=== PATIENT | male | born 1975 | race Caucasian/White ===

== ENCOUNTER 2020-03-14 19:01 | Emergency (ER) | payer MEDICAID, SELFPAY ==
[2020-03-14 19:15] VITALS: BP 127/87; PULSE 72; RESP 16; TEMP 37; O2SAT 100
[2020-03-14 19:23] VITALS: BP 127/67; PULSE 72; RESP 16; TEMP 37; O2SAT 100; BMI 23.6
--- NOTE | 2020-03-14 19:28 | ED.DENTAL ---
HPI - Dental/Oral General Chief complaint: Dental/Oral Stated complaint: dental pain Time Seen by Provider: 03/14/20 19:26 Source: patient Mode of arrival: ambulatory Limitations: no limitations History of Present Illness HPI Narrative: Dental pain for the past 3 days call this dentists was given prescription amoxicillin which started 2 days ago and ibuprofen and scheduled for extraction and Filippo feels like the antibiotics is not helping. Teeth map: 1. Extensive decay 2. Extensive decay Mild tender palpation No abscess Onset (ago): day(s) Duration: constant Severity scale (1-10): 5 Relieving factors: nothing Treatment prior to arrival: other (Tylenol) Related Data Previous Rx's Medication Instructions Recorded clindamycin HCl 300 mg PO BID 7 Days #14 cap 03/14/20 Allergies Allergy/AdvReac Type Severity Reaction Status Date / Time No Known Allergies Allergy Unverified 02/17/20 16:27 Review of Systems Review of Systems: Constitutional: No Weight loss, No Fever, No Chills, No Night Sweats, No Fatigue, No Malaise ENT/Mouth: No Hearing loss, No Ear Pain, No Nasal Congestion, No Sinus Pain, No Hoarseness, No sore throat, No Rhinorrhea, No Swallowing Difficulty Eyes: No Eye Pain, No Swelling, No Redness, No Foreign Body, No Discharge, No Vision Changes Cardiovascular: No Chest Pain, No SOB, No Dyspnea on Exertion, No Orthopnea, No Edema, No Palpitations Respiratory: No Cough, No Sputum, No Wheezing, No Smoke Exposure, No Dyspnea Gastrointestinal: No Nausea, No Vomiting, No Diarrhea, No Constipation, No abdominal Pain, No Hematochezia, No Melena Musculoskeletal: No joint pain, No Myalgias, No Joint Swelling Skin: No Skin Lesions, No rash Neuro: No Weakness, No Numbness, No Paresthesias, No Loss of Consciousness, No Dizziness, No Headache Psych: No Anxiety/Panic, No Depression, No SI/HI/AH/VH, No Social Issues, Heme/Lymph: No Bruising, No Bleeding,No Lymphadenopathy PMFSH Past Medical History Attestation statement: The following information was validated with the patient. Social History Social History Alcohol intake: never Smoking Status: Current every day smoker Use of substances other than those prescribed or required for medical reasons: No Advance Directives: No Advance Directives Information Provided: Yes Physical Exam Vital Signs: Vital Signs: Vital Signs Temp Pulse Resp BP Pulse Ox 03/14/20 19:23 98.6 F 72 16 127/67 100 03/14/20 19:15 98.6 F 72 16 127/87 100 Body Mass Index 23.6 Const: General: cooperative and healthy appearing; No acute distress or intoxicated appearing Nutritional Appearance: average body habitus Orientation/consciousness: patient oriented x3 HENMT: Head: Yes normal to inspection Ears: hearing grossly normal bilaterally Teeth and gingiva: caries Eyes: General: appearance normal, both eyes and all related structures Visual Carcamo: normal visual carcamo by confrontation Chest: Chest palpation & inspection: normal inspection of the chest Resp: Effort & Inspection: normal respiratory effort Cardio: Jugular venous distension: no JVD Skin: General skin exam: no rashes or lesions noted Neuro: General: patient oriented x3 Extrem: General: Yes normal to inspection Course Course Course Narrative: Mass PET reviewed On methadone would prefer to avoid narcotics Okay with ibuprofen and topical Orajel and change antibiotics to clindamycin. He is agreeable plan. Stable for discharge. Discharge Plan Discharge Clinical Impression: Dental caries Patient Disposition: Home, Self-Care Instructions: Toothache (ED) Additional Instructions: Stop taking amoxicillin Start taking the new antibiotic (clindamycin) Topical pain medication (Orajel) Ibuprofen for pain Called the dentist to schedule appointment sooner for evaluation and treatment Return if any concerns or worsening symptoms Thank you Prescriptions: New clindamycin HCl 300 mg capsule 300 mg PO BID 7 Days Qty: 14 RF: 0
== END 2020-03-14 19:54 | disposition home or self-care (01) ==
PROVIDERS: Emergency Provider Internal Medicine; PCP Internal Medicine
DX: K02.9 Dental caries, unspecified (principal); K08.89 Other specified disorders of teeth and supporting structures; F17.200 Nicotine dependence, unspecified, uncomplicated
CPT/HCPCS: 99283; 99284

== ENCOUNTER 2020-11-05 21:51 | Emergency (ER) | payer MEDICAID, SELFPAY ==
[2020-11-05 21:54] VITALS: BP 107/76; PULSE 72; RESP 16; O2SAT 95; BMI 23.8
--- NOTE | 2020-11-06 00:44 | ED.DENTAL ---
HPI - Dental/Oral General Chief complaint: Dental/Oral Stated complaint: Dental Pain Time Seen by Provider: 11/06/20 00:15 Source: patient Mode of arrival: ambulatory History of Present Illness HPI Narrative: This is a 45-year-old male who presents with worsening dental pain at 4. Without associated fever, chills. Related Data Previous Rx's Medication Instructions Recorded clindamycin HCl 300 mg PO BID 7 Days #14 cap 03/14/20 ibuprofen [IBU] 800 mg PO Q8H #30 tab 03/14/20 amoxicillin-pot clavulanate 1 tab PO Q12H 5 Days #10 tab 11/06/20 [Augmentin] Allergies Allergy/AdvReac Type Severity Reaction Status Date / Time No Known Allergies Allergy Verified 11/05/20 21:57 Review of Systems Review of Systems: Pertinent positives and negatives as stated in HPI 10 point review of systems is otherwise negative. PMFSH Past Medical History Source: nursing notes reviewed Medical History No known health problems Social History Social History Alcohol intake: never Advance Directives: No Advance Directives Information Provided: Yes Physical Exam Vital Signs: Vital Signs: Last Vital Signs Pulse 72 11/05/20 21:54 Resp 16 11/05/20 21:54 BP 107/76 11/05/20 21:54 Pulse Ox 95 11/05/20 21:54 Body Mass Index 23.8 VITAL SIGNS: Reviewed. GENERAL: Well developed, well nourished, in no acute distress. HEAD: Normocephalic/atraumatic EYES: PERRLA, EOMI NOSE: Nares patent bilateral OROPHARYNX: no oral lesions noted, posterior pharynx clear, multiple dental caries, noted gum a rosea in around the affected/painful tooth without obvious evidence of abscess NECK: Supple, no adenopathy LUNGS: Normal breath sounds. No adventitious sounds or accessory muscle use. SpO2<95> CARDIOVASCULAR: Regular rate and rhythm without noted murmurs ABDOMEN: Soft, non-tender, non-distended with bowel sounds. Course Course Course Narrative: This is a 45-year-old male with history and clinical presentation consistent with dental caries and toothache. Patient was provided with combination analgesics and initial antibiotics here in the emergency room as well as topical benzocaine for symptomatic relief. He was then discharged in stable condition. Discharge Plan Discharge Clinical Impression: Toothache, Dental caries Patient Disposition: Home, Self-Care Instructions: Toothache (ED) Additional Instructions: Follow-up with a dentist tomorrow morning for re-evaluation. Tylenol 1000 mg, orally, every 6 hours as needed for pain control. Do not exceed 4000 mg within 24 hours. Ibuprofen 400 mg, orally with milk or food, every 6 hours as needed for pain control. You may take this medication together with Tylenol for improved symptom relief. Return to the ER for acute worsening of symptoms. Prescriptions: New amoxicillin-pot clavulanate [Augmentin] 875-125 mg tablet 1 tab PO Q12H 5 Days Qty: 10 RF: 0 No Action clindamycin HCl 300 mg capsule 300 mg PO BID 7 Days Qty: 14 RF: 0 ibuprofen [IBU] 800 mg tablet 800 mg PO Q8H Qty: 30 RF: 0 Referrals: Lonnie Botello MD [Primary Care Provider] - 2 days
[2020-11-06] MEDS: Acetaminophen 325 MG TABLET 975 MG PO (00:53)
[2020-11-06] MEDS: Ketorolac Tromethamine 15 MG/ML VIAL IM (00:53)
[2020-11-06] MEDS: Amoxicillin/Potassium Clav 875 MG TABLET PO (00:53)
== END 2020-11-06 00:57 | disposition home or self-care (01) ==
PROVIDERS: Emergency Provider Student in an Organized Health Care Education/Training Program; PCP Internal Medicine
DX: K02.9 Dental caries, unspecified (principal); K08.89 Other specified disorders of teeth and supporting structures
CPT/HCPCS: 96372; 99283; 99284; J1885

== ENCOUNTER 2020-11-20 11:33 | Outpatient (REF) | payer MEDICAID, SELFPAY ==
--- NOTE | ~2020-11-20 | XR_ITS ---
EXAMINATION: XR LUMBOSACRAL SPINE CLINICAL INFORMATION: Low back pain COMPARISON: Lumbar spine radiograph from 01/11/2010 TECHNIQUE: Three views of the lumbosacral spine. FINDINGS: There are 5 nonrib-bearing lumbar-type vertebral bodies. No acute visible fracture or dislocation. Slight dextrocurvature of the mid lumbar spine. Minimal degenerative changes with osteophyte formation lumbar spine arthropathy. Vertebral body height and disc spaces are otherwise maintained. Posterior elements are intact. Paraspinal soft tissues are unremarkable. Visualized bowel gas is unremarkable. XR/XR lumbar spine 2-3V IMPRESSION: 1. No acute visible fracture or dislocation. 2. Minimal degenerative changes.
== END 2020-11-20 11:34 | disposition home or self-care (01) ==
LOC: HO.XRAY 11:33
PROVIDERS: PCP Internal Medicine; Visit Provider Internal Medicine
DX: M54.5 Low back pain (principal)
CPT/HCPCS: 72100

== ENCOUNTER 2022-02-06 09:00 | Outpatient (RCR) | payer MEDICAID, SELFPAY ==
[2022-01-18 09:13] VITALS: BP 119/71; PULSE 82; O2SAT 96
== END 2022-02-20 11:37 | disposition home or self-care (01) ==
LOC: HO.PT 09:00
PROVIDERS: PCP Internal Medicine; Visit Provider Family Medicine
DX: M54.50 Low back pain, unspecified (principal)
CPT/HCPCS: 97110; 97161; 97530

== ENCOUNTER 2023-01-07 08:40 | Outpatient (REF) | payer MEDICAID, SELFPAY ==
[2023-01-07 11:27] LABS: MANUAL DIFF FLAG NO
[2023-01-07 11:49] LABS: Basophils Absolute Auto 0.1 X10*3/uL (0.0-0.2); Basophils Percent Auto 0.9 % (0-2); Eosinophils Absolute Auto 0.1 X10*3/uL (0.0-0.4); Eosinophils Percent Auto 1.6 % (0-4); Hematocrit 42.5 % (42.0-52.0); Hemoglobin 14.2 g/dl (14.0-18.0); Imm Gran Abs Auto 0.02 X10*3/uL (0.00-0.03); Imm Gran Pct Auto 0.4 % (0.0-0.4); Lymphocytes Absolute Auto 2.1 X10*3/uL (1.2-4.9); Lymphocytes Percent Auto 36.9 % (20-40); Mean Corpuscular HGB Conc 33.4 g/dl (31.0-36.0); Mean Corpuscular Hemoglobin 29.3 pg (27.0-33.0); Mean Corpuscular Volume 87.8 fL (80.0-98.0); Mean Platelet Volume 10.2 fL (9.4-12.4); Monocytes Absolute Auto 1.1 X10*3/uL (0.1-1.2); Monocytes Percent Auto 18.7 % (2-11); Neutrophils Absolute Auto 2.3 x10*3/uL (2.0-8.3); Neutrophils Percent Auto 41.5 % (45-73); Platelet Count 265 X10*3/uL (160-400); Red Blood Count 4.84 X10*6/uL (4.60-5.80); Red Cell Distribution Width 13.9 % (11.0-16.0); White Blood Count 5.6 X10*3/uL (4.8-10.8)
[2023-01-07 12:31] LABS: Anion Gap 12 (12-20); Blood Urea Nitrogen 16 mg/dL (9-16); Calcium 9.6 mg/dL (8.4-10.2); Carbon Dioxide 28 mmol/L (22-29); Chloride 104 mmol/L (96-108); Estimated Glomerular Filt Rate > 60; Glucose Random 100 mg/dL (60-115); Sodium 140 mmol/L (135-145)
== END 2023-01-07 08:41 | disposition home or self-care (01) ==
LOC: HO.HHCL 08:40
PROVIDERS: Visit Provider Student in an Organized Health Care Education/Training Program
DX: E78.1 Pure hyperglyceridemia (principal)
CPT/HCPCS: 36415; 80048; 85025

== ENCOUNTER 2024-09-18 06:59 | Emergency (ER) | payer BC, SELFPAY ==
--- NOTE | ~2024-09-18 | XR_ITS ---
CLINICAL HISTORY: cough dyspnea 2 view chest x-ray Comparison: None Findings: The lungs are clear. Normal size heart. No acute fracture. IMPRESSION: No acute cardiopulmonary abnormality. This document has been electronically signed by: Trent Desouza on 09/18/2024 07:53:38
[2024-09-18 07:00] VITALS: BP 132/93; PULSE 98; RESP 20; TEMP 36; O2SAT 94; BMI 25.8
--- NOTE | 2024-09-18 07:03 | ECG_ITS ---
Test Reason : SOB Blood Pressure : */* mmHG Vent. Rate : 73 BPM Atrial Rate : 73 BPM P-R Int : 150 ms QRS Dur : 78 ms QT Int : 396 ms P-R-T Axes : 71 22 35 degrees QTcB Int : 436 ms Normal sinus rhythm Normal ECG When compared with ECG of 29-Jul-2016 09:09, No significant change was found Referred By: Generic ED Physician Electronically Signed By: CAMRYN AKHTAR MD
--- NOTE | 2024-09-18 07:06 | PC.NURSE ---
Pt also reporting sore throat
[2024-09-18 07:17] LABS: MANUAL DIFF FLAG NO
[2024-09-18 07:20] LABS: Basophils Absolute Auto 0.1 X10*3/uL (0.0-0.2); Eosinophils Absolute Auto 0.6 X10*3/uL (0.0-0.4); Eosinophils Percent Auto 5.9 % (0-4); Hemoglobin 13.8 g/dl (14.0-18.0); Imm Gran Abs Auto 0.04 X10*3/uL (0.00-0.03); Imm Gran Pct Auto 0.4 % (0.0-0.4); Lymphocytes Absolute Auto 2.8 X10*3/uL (1.2-4.9); Lymphocytes Percent Auto 27.5 % (20-40); Mean Corpuscular HGB Conc 34.5 g/dl (31.0-36.0); Mean Corpuscular Hemoglobin 30.1 pg (27.0-33.0); Mean Corpuscular Volume 87.1 fL (80.0-98.0); Monocytes Absolute Auto 1.2 X10*3/uL (0.1-1.2); Monocytes Percent Auto 11.3 % (2-11); Neutrophils Absolute Auto 5.5 x10*3/uL (2.0-8.3); Neutrophils Percent Auto 53.9 % (45-73); Platelet Count 280 X10*3/uL (160-400); Red Blood Count 4.59 X10*6/uL (4.60-5.80); Red Cell Distribution Width 13.4 % (11.0-16.0); White Blood Count 10.1 X10*3/uL (4.8-10.8)
--- NOTE | 2024-09-18 07:30 | ED.SOB ---
HPI - SOB/Dyspnea General Chief Complaint: Dyspnea Stated Complaint: Diff breathing Time Seen by Provider: 09/18/24 07:26 Source: patient Mode of arrival: ambulatory Limitations: no limitations History of Present Illness HPI Narrative: This is a 49 years old patient presented to the emergency department with a chief complaint of cough congestion shortness of breath. He denies any fever chills vomiting. He does smoke. He is ambulatory to the emergency department MD elicited complaint: shortness of breath and cough Onset (ago): day(s) (2) Timing: constant Severity: moderate Exacerbating factors: nothing Relieving factors: nothing Associated symptoms: denies other symptoms Related Data Home oxygen amount: none Previous Rx's ?Medication ?Instructions ?Recorded clindamycin HCl 300 mg capsule 300 mg PO BID 7 days #14 caps 03/14/20 ibuprofen 800 mg tablet (IBU) 800 mg PO Q8H Pain #30 tabs 03/14/20 amoxicillin 875 mg-potassium 1 tab PO Q12H 5 days #10 tabs 11/06/20 clavulanate 125 mg tablet (Augmentin) albuterol sulfate 90 mcg/actuation 2 inh inhalation Q6H PRN shortness 09/18/24 breath activated powder inhaler of breath or wheezing #1 ea doxycycline monohydrate 100 mg 100 mg PO BID #14 caps 09/18/24 capsule prednisone 20 mg tablet 60 mg (3 x 20 mg) PO DAILY #12 tabs 09/18/24 Allergies Allergy/AdvReac Type Severity Reaction Status Date / Time No Known Allergies Allergy Verified 09/18/24 07:02 Review of Systems Constitutional: Constitutional: Reports no additional constitutional complaints Cardiovascular: Cardiovascular: Reports no additional cardiovascular complaints Respiratory: Respiratory: Reports cough [facility] Past Medical History Attestation statement: The following information was validated with the patient. [facility] Narrative: smoker Medical History No known health problems Social History Social History Alcohol intake: never Smoked in Last 30 Days: Yes Advance Directives: No Advance Directives Information Provided: No Physical Exam Vital Signs: Vital Signs: Last Vital Signs Temp 96.8 F 09/18/24 07:00 Pulse 80 09/18/24 07:51 Resp 18 09/18/24 07:51 BP 132/93 H 09/18/24 07:00 Pulse Ox 94 09/18/24 07:00 O2 Del Method Room Air 09/18/24 07:00 BMI result Body Mass Index 25.8 Patient is in no distress she is comfortable in the stretcher Const: General: cooperative Orientation/consciousness: patient oriented x3 HEENT: Head: Yes normal to inspection General nose exam: Normal external nose present Face and sinus: Yes normal facial exam Mouth: Normal oral and palatal mucosa present Teeth and gingiva: dentition normal Throat: Yes posterior oropharynx normal Neck: Neck: Yes normal visual inspection Chest: Chest palpation & inspection: normal inspection of the chest Resp: Effort & Inspection: Actively coughing Auscultation: rhonchi and wheezes Cardio: Jugular venous distension: no JVD Rate: regular rate Rhythm: regular rhythm GI: Inspection: Yes normal to inspection Auscultation: normal bowel sounds Skin: General skin exam: no rashes or lesions noted Lesions: no lesions Rashes: no rashes Neuro: General: patient oriented x3 Course Reevaluation(s) Reevaluation #1: On re-examination he is feeling much better after nebulizer treatment anticipate discharge Time: 08:15 Medications Administered Discontinued Medications Generic Name Dose Route Start Last Admin Trade Name Freq PRN Reason Stop Dose Admin Albuterol Sulfate 2.5 mg/ 5 mg 09/18/24 07:40 09/18/24 07:49 Albuterol Sulfate 2.5 mg INHALE 09/18/24 07:41 5 mg ONCE ONE Administration Medical Decision Making Medical Decision Making [facility] Narrative: Patient is here with cough congestion we will obtain chest x-ray labs 08:50 the patient is doing much better lungs clear, cranial picture more consistent with asthmatic bronchitis we will discharge him home on a albuterol/prednisone/p.o. antibiotic Differential Diagnosis Differential Diagnoses: The differential diagnosis associated with the presentation includes Bronchitis/pneumonia/viral syndrome Admission/Observation Consideration of admission/observation: Escalation of care including admission/observation considered Lab Data [facility] Lab Attestation statement: I reviewed the patient's lab results. 09/18/24 07:12 09/18/24 07:12 Labs: Lab Results 09/18/24 Range/Units 07:12 WBC 10.1 (4.8-10.8) X10*3/uL RBC 4.59 L (4.60-5.80) X10*6/uL Hgb 13.8 L (14.0-18.0) g/dl Hct 40.0 L (42.0-52.0) % MCV 87.1 (80.0-98.0) fL MCH 30.1 (27.0-33.0) pg MCHC 34.5 (31.0-36.0) g/dl RDW 13.4 (11.0-16.0) % Plt Count 280 (160-400) X10*3/uL MPV 9.0 L (9.4-12.4) fL Immature Gran % (Auto) 0.4 (0.0-0.4) % Neut % (Auto) 53.9 (45-73) % Lymph % (Auto) 27.5 (20-40) % [place] % (Auto) 11.3 H (2-11) % Eos % (Auto) 5.9 H (0-4) % Baso % (Auto) 1.0 (0-2) % Lymph # (Auto) 2.8 (1.2-4.9) X10*3/uL [place] # (Auto) 1.2 (0.1-1.2) X10*3/uL Eos # (Auto) 0.6 H (0.0-0.4) X10*3/uL Baso # (Auto) 0.1 (0.0-0.2) X10*3/uL Abs Immat Gran (auto) 0.04 H (0.00-0.03) X10*3/uL Absolute Neuts (auto) 5.5 (2.0-8.3) x10*3/uL Absolute Nucleated RBC 0.000 (0.0-0.012) X10*3/uL Nucleated RBC % (auto) 0.0 (0.0-0.2) /100WBC Sodium 139 (135-145) mmol/L Potassium 4.3 (3.3-5.1) mmol/L Chloride 105 (96-108) mmol/L Carbon Dioxide 27 (22-29) mmol/L Anion Gap 11 L (12-20) BUN 15 (9-16) mg/dL Creatinine 0.72 (0.5-1.4) mg/dL Estim Creat Clear Calc 116.0 Estimated GFR > 60 Random Glucose 99 (60-115) mg/dL Calcium 9.7 (8.4-10.2) mg/dL Troponin I High Sens < 2.7 (<3.5-35.0) ng/L B-Natriuretic Peptide < 10 (<100) pg/mL Influenza Type A (PCR) NEGATIVE (Negative) Influenza Type B (PCR) NEGATIVE (Negative) RSV RNA Qual (PCR) NEGATIVE (Negative) SARS-CoV-2 RNA (RT-PCR) NEGATIVE (Negative) S. pyogenes GrpA ZURDO Negative (Negative) Independent Interpretation I performed an independent interpretation of an: EKG and Plain X-Ray Interpretation: EKG that you interpreted by me as sinus rhythm rate [address]-T changes this is a normal EKG Radiology Impression Discussion of test interpretation with radiology: I have reviewed the radiologist's reading. Discharge Plan Discharge Clinical Impression: Bronchitis Patient Disposition: Home, Self-Care Instructions: Acute Bronchitis (ED) Prescriptions: New albuterol sulfate 90 mcg/actuation aerosol powdr breath activated 2 inh inhalation Q6H PRN (Reason: shortness of breath or wheezing) Qty: 1 0RF prednisone 20 mg tablet 60 mg PO DAILY Qty: 12 0RF doxycycline monohydrate 100 mg capsule 100 mg PO BID Qty: 14 0RF No Action amoxicillin-pot clavulanate [Augmentin] 875-125 mg tablet 1 tab PO Q12H 5 Days Qty: 10 0RF clindamycin HCl 300 mg capsule 300 mg PO BID 7 Days Qty: 14 0RF ibuprofen [IBU] 800 mg tablet 800 mg PO Q8H Qty: 30 0RF Referrals: Lonnie Botello MD [Primary Care Provider] - 2 days Print Language: Cook Islander
[2024-09-18 07:33] LABS: IDNOW Serial# 6674DD1D; Strep A Nucleic Acid Negative (Negative)
[2024-09-18 07:36] LABS: Anion Gap 11 (12-20); Blood Urea Nitrogen 15 mg/dL (9-16); Calcium 9.7 mg/dL (8.4-10.2); Carbon Dioxide 27 mmol/L (22-29); Chloride 105 mmol/L (96-108); Estimated Glomerular Filt Rate > 60; Glucose Random 99 mg/dL (60-115); Potassium 4.3 mmol/L (3.3-5.1); Sodium 139 mmol/L (135-145)
[2024-09-18 07:42] LABS: Troponin-I High Sensitivity < 2.7 ng/L (<3.5-35.0)
[2024-09-18 07:46] LABS: B Type Natriuretic Peptide < 10 pg/mL (<100)
[2024-09-18] MEDS: Albuterol Sulfate 2.5 MG, Albuterol Sulfate (0.083%) 2.5 MG 5 MG INHALE (07:49)
[2024-09-18 07:51] VITALS: PULSE 80; RESP 18; O2SAT 94
[2024-09-18 07:57] LABS: Influenza A PCR NEGATIVE (Negative); Influenza B PCR NEGATIVE (Negative); Resp Syncy Virus RNA Qual PCR NEGATIVE (Negative); SARS COV2 PCR INHOUSE NEGATIVE (Negative)
[2024-09-18 08:26] VITALS: BP 109/77; PULSE 70; RESP 16; TEMP 36.6; O2SAT 94
== END 2024-09-18 08:27 | disposition home or self-care (01) ==
PROVIDERS: Emergency Provider Emergency Medicine; PCP Internal Medicine
DX: J40 Bronchitis, not specified as acute or chronic (principal); R06.02 Shortness of breath; R05.9 Cough, unspecified; Z03.818 Encounter for observation for suspected exposure to other biological agents ruled out
CPT/HCPCS: 0241U; 71046; 80048; 83880; 84484; 85025; 87651; 93005; 94640; 99284

== ENCOUNTER → 2024-09-18 07:03 | Outpatient (BNV) | payer BC, SELFPAY | PROVIDERS: Emergency Provider Emergency Medicine; PCP Internal Medicine; Visit Provider Internal Medicine Cardiovascular Disease | DX: R06.02 Shortness of breath (principal) | CPT/HCPCS: 93010 ==

== ENCOUNTER → 2024-09-18 07:03 | Outpatient (BNV) | payer BC, SELFPAY | PROVIDERS: Emergency Provider Emergency Medicine; PCP Internal Medicine; Visit Provider Radiology Vascular & Interventional Radiology | DX: R05.9 Cough, unspecified (principal); R06.00 Dyspnea, unspecified | CPT/HCPCS: 71046 ==

== ENCOUNTER 2025-01-10 11:29 | Emergency (ER) | payer BC, SELFPAY ==
--- NOTE | ~2025-01-10 | CT_ITS ---
EXAMINATION: CT FACIAL BONES WITHOUT CONTRAST CLINICAL INFORMATION: Status post fall. COMPARISON: None available. TECHNIQUE: 1 diffuse axial images through the maxillofacial bones using 3 mm collimation with bone and soft tissue algorithm. Sagittal and coronal reformatted images acquired. DLP: 316.[address] examination was performed using dose optimization techniques as appropriate, variously including the following: *Automated exposure control *Adjustment of mA and/or kV according to patient size (this includes techniques or standardized protocols for targeted exams where dose is matched to indication/reason for exam; i.e. extremities or head) *Use of iterative reconstruction technique FINDINGS: There is a focal defect in the nasal septum probably drug-related. Old traumatic deformity nasal bones. No acute cortical disruption within the nasal bones nasal septum and vomer. The orbital rims, orbital fissures and orbital apices are intact. Zygomatic arcs are intact. The maxilla and and pterygoid plates are intact. The mandible is intact. Edentulous. No hematoma, intraconal or extraconal compartments of the orbits. The eyeballs are intact. Tympanic cavities and mastoid cells are aerated. Mucosal thickening, maxillary sinuses and ethmoid air cells. No gross air-fluid levels in the paranasal sinus. Punctate calcifications in the palatine tonsils. Nonspecific prominent cervical lymph nodes. Focal lobulated the gas abnormalities in the paraglottic compartment bilaterally. I do not see the thyroid. 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 No acute maxillofacial bone fractures. Chronic paranasal sinus disease. Focal defect anterior nasal septum likely drop-related. Electronically signed by: Donaldo Andrea MD 01/10/2025 01:55 PM EDT
--- NOTE | ~2025-01-10 | CT_ITS ---
EXAMINATION: CT HEAD WITHOUT CONTRAST CLINICAL INFORMATION: fall with head strike, dizziness COMPARISON: February 21, 2019. TECHNIQUE: Contiguous axial imaging was performed from the skull base to vertex without intravenous administration of contrast. This CT examination was performed using dose optimization techniques as appropriate, variously including the following: *Automated exposure control *Adjustment of mA and/or kV according to patient size (this includes techniques or standardized protocols for targeted exams where dose is matched to indication/reason for exam; i.e. extremities or head) *Use of iterative reconstruction technique DLP: 640.9 mGy-cm FINDINGS: No acute cortical disruption, bony calvarium. Probable old traumatic deformity nasal bones. No acute intracranial hemorrhage, mass effect, midline shift, hydrocephalus or herniation. Meyers-white matter differentiation is normal. Posterior cranial fossa contents demonstrated no acute intracranial hemorrhage or gross mass effect. Sellar/suprasellar region demonstrated no gross masses. Normal position of the cerebellar tonsils. Xanthogranulomatous choroid plexus bilaterally. No air-fluid levels in the paranasal sinuses. Mucosal thickening, maxillary sinuses and ethmoid air cells. Tympanic cavities and mastoid cells are aerated. No gross hematoma in the intraconal or extraconal compartments of the orbits. CT/CT head/brain wo IV con IMPRESSION: No acute fracture, bony calvarium. No acute intracranial hemorrhage. Stable brain. Electronically signed by: Donaldo Andrea MD 01/10/2025 01:50 PM EDT
[2025-01-10 12:42] VITALS: BP 115/75; PULSE 75; RESP 18; TEMP 36.6; O2SAT 98; BMI 27.5
--- NOTE | 2025-01-10 12:42 | ED_ITS ---
HPI - General Adult General Chief complaint: Head Injury Stated complaint: Fall Sat, head injury, DR sent Time Seen by Provider: 01/10/25 16:45 Source: patient Mode of arrival: ambulatory Limitations: no limitations History of Present Illness ED Provider: Matthieu Earl PA-C HPI narrative: 49-year-old male presents to the ER for evaluation of dizziness after a fall 2 days ago. He states he fell and hit his head on concrete floor with carpet overlying, sustaining rug herrera to his left maxillary area and forehead. No loss of consciousness. He is not on anticoagulation. He states after he fell he had a mild hedache but no other symptoms. He woke up yesterday with dizziness and feeling the room spin when he stood up and moved around. Improved with rest and sitting. no associated N/V, vision changes, weakness, numbness or tingling. no neck pain. no chest pain or sob. he states his dizziness is better today but still happens slightly when he stands up, less intense than yesterday. complaint: dizziness Onset (ago): day(s) (1) Location: head Pain Consistency: intermittent Relieving factors: rest Exacerbating factors: other (standing up) Associated symptoms: other (dizziness) Treatments prior to arrival: none Related Data Previous Rx's ?Medication ?Instructions ?Recorded clindamycin HCl 300 mg capsule 300 mg PO BID 7 days #1 4 caps 03/14/20 ibuprofen 800 mg tablet (IBU) 800 mg PO Q8H Pain #30 t abs 03/14/20 amoxicillin 875 mg-potassium 1 tab PO Q12H 5 days #10 tabs 11/06/20 clavulanate 125 mg tablet (Augmentin) albuterol sulfate 90 mcg/actuation 2 inh inhalation Q6 H PRN shortness 09/18/24 breath activated powder inhaler of breath or wheezing #1 ea doxycycline monohydrate 100 mg 100 mg PO BID #14 caps 09/18/24 capsule prednisone 20 mg tablet 60 mg (3 x 20 mg) PO DAILY # 12 tabs 09/18/24 Allergies Allergy/AdvReac Type Severity Reaction Status Date / Time No Known Allergies Allergy Verified 01/10/25 12:44 Review of Systems 2 Review of Systems: Yes all other systems are reviewed and are negative PMFSH Past Medical History Medical History No known health problems Social History Social History Alcohol intake: never Advance Directives: No Advance Directives Information Provided: Yes Physical Exam ED Exam Exam: Appearance: Alert. Oriented X3. No acute distress. Head/face: normocephalic, superficial, healing abrasions/herrera on the left superior orbit and left forehead Eyes: Pupils equal, round and reactive to light. No nystagmus ENT: Pharynx normal. Neck: Normal inspection. Neck supple. No c-spine tenderness CVS: Normal heart rate and rhythm. Pulses normal. Respiratory: No respiratory distress. Breath sounds normal. Skin: Skin warm and dry. Normal skin color. Normal skin turgor. No rashes. Extremities: No lower extremity edema. No joint swelling. Neuro/psych: Oriented X 3. No motor deficit. No sensory deficit. CN II-XII intact. Normal speech and cognition. Steady gait Vital Signs: Vital Signs - 24 hr 01/10/25 12:42 Temperature 97.8 F Pulse Rate 75 Respiratory Rate 18 Blood Pressure 115/75 Pulse Oximetry 98 Oxygen Delivery Method Room Air BMI result Body Mass Index 27.5 Course Course Course Narrative: This is a rapid medical exam performed by Alfredito Moore NP: Additional HPI, ROS, PE not included below will be deferred to primary provider. Patient is a 49-year-old male with history of [place] Palsy affecting L side of face complaining of dizziness since a fall on Friday. Was working out, slipped and hit face on a carpeted floor. Woke yesterday with room spinning. Denies headache or vision changes. Has abrasion to bridge of nose. Plan: CT head and facial bones, EKG, labs Medical Decision Making Medical Decision Making MDM Narrative: 49 yo male presenting for evaluation of postural dizziness s/p fall with face strike 2 days ago. no LOC and not on anticoagulation. symptoms overall improving. tried to go to work today but came here because he was dizzy. no chest pain, sob, diaphroesis, focal neuro symptoms. VS are normal steady gait with no focal findings on exam. labs reviewed. CT reviewed - no acute traumatic findings, old fractures seen. overall he is feeling better. comfortable with discharge home. discussed head injury management and return precautions Differential Diagnosis Differential Diagnoses: The differential diagnosis associated with the presentation includes closed head injury, concussion, ICH/SAH/SDH, dehydration, anemia, orthostatic hypotension, cardiac arrythmia, low suspicion for posterior stroke Admission/Observation Consideration of admission/observation: Escalation of care including admission/observation considered Lab Data MDM Lab Attestation statement: I reviewed the patient's lab results. no anemia, no major metabolic derangement 01/10/25 13:00 01/10/25 13:00 Labs: Lab Results 01/10/25 Range/Units 13:00 WBC 7.4 (4.8-10.8) X10*3/uL RBC 4.77 (4.60-5.80) X10*6/uL Hgb 14.4 (14.0-18.0) g/dl Hct 42.3 (42.0-52.0) % MCV 88.7 (80.0-98.0) fL MCH 30.2 (27.0-33.0) pg MCHC 34.0 (31.0-36.0) g/dl RDW 13.6 (11.0-16.0) % Plt Count 306 (160-400) X10*3/uL MPV 9.0 L (9.4-12.4) fL Immature Gran % (Auto) 0.3 (0.0-0.4) % Neut % (Auto) 48.3 (45-73) % Lymph % (Auto) 35.7 (20-40) % [place] % (Auto) 10.0 (2-11) % Eos % (Auto) 4.6 H (0-4) % Baso % (Auto) 1.1 (0-2) % Lymph # (Auto) 2.7 (1.2-4.9) X10*3/uL [place] # (Auto) 0.7 (0.1-1.2) X10*3/uL Eos # (Auto) 0.3 (0.0-0.4) X10*3/uL Baso # (Auto) 0.1 (0.0-0.2) X10*3/uL Abs Immat Gran (auto) 0.02 (0.00-0.03) X10*3/uL Absolute Neuts (auto) 3.6 (2.0-8.3) x10*3/uL Absolute Nucleated RBC 0.000 (0.0-0.012) X10*3/uL Nucleated RBC % (auto) 0.0 (0.0-0.2) /100WBC Sodium 143 (135-145) mmol/L Potassium 4.4 (3.3-5.1) mmol/L Chloride 105 (96-108) mmol/L Carbon Dioxide 31 H (22-29) mmol/L Anion Gap 11 L (12-20) BUN 17 H (9-16) mg/dL Creatinine 0.91 (0.5-1.4) mg/dL Estim Creat Clear Calc 99.3 Estimated GFR > 60 Random Glucose 84 (60-115) mg/dL Calcium 9.7 (8.4-10.2) mg/dL Total Bilirubin 0.3 (0.0-1.0) mg/dL AST 38 H (5-37) U/L ALT 37 (0-40) U/L Alkaline Phosphatase 74 (39-117) U/L Total Protein 7.6 (6.5-8.0) g/dL Albumin 4.6 (3.5-5.0) g/dL Independent Interpretation I performed an independent interpretation of an: EKG and CT Scan Interpretation: normal sinus rhythm, gilberto rate 66 bpm, no ST segment changes, no change from prior CT head without acute bleed or edema Radiology Impression Discussion of test interpretation with radiology: I have reviewed the radiologist's reading. External Record Review External record reviewed: Prior outpatient labs and Prior outpatient radiology Critical Care Time Critical Care Time Critical Care Time: No Discharge Plan Discharge Clinical Impression: Closed head injury Qualifiers: Encounter type: initial encounter Qualified Code(s): S09.90XA - Unspecified injury of head, initial encounter Patient Disposition: Home, Self-Care Instructions: Head Injury (DC) Additional Instructions: Your CT scans did not show any acute injuries You may have a mild concussion Treatment is rest and supportive care Rest your brain and your body - no strenuous physical activity, avoid prolonged screen time When changing body positions do so slowly Drink plenty of fluids Follow up with your doctor If you develop new or worsening symptoms call 911 or come back to the ER for further evaluation. Prescriptions: No Action amoxicillin-pot clavulanate [Augmentin] 875-125 mg tablet 1 tab PO Q12H 5 Days Qty: 10 0RF clindamycin HCl 300 mg capsule 300 mg PO BID 7 Days Qty: 14 0RF ibuprofen [IBU] 800 mg tablet 800 mg PO Q8H Qty: 30 0RF albuterol sulfate 90 mcg/actuation aerosol powdr breath activated 2 inh inhalation Q6H PRN (Reason: shortness of breath or wheezing) Qty: 1 0RF prednisone 20 mg tablet 60 mg PO DAILY Qty: 12 0RF doxycycline monohydrate 100 mg capsule 100 mg PO BID Qty: 14 0RF Referrals: Lonnie Botello MD [Primary Care Provider, Medical] Stand Alone Forms: Work/School Release Print Language: Martiniquais
--- NOTE | 2025-01-10 12:45 | ECG_ITS ---
Test Reason : DIZZINESS Blood Pressure : */* mmHG Vent. Rate : 66 BPM Atrial Rate : 66 BPM P-R Int : 142 ms QRS Dur : 76 ms QT Int : 392 ms P-R-T Axes : 62 26 13 degrees QTcB Int : 410 ms Normal sinus rhythm Normal ECG When compared with ECG of 18-Sep-2024 07:34, No significant change was found Referred By: Kimberly Moore Electronically Signed By: Kelby Chatman
[2025-01-10 13:04] LABS: MANUAL DIFF FLAG NO
[2025-01-10 13:05] LABS: Hematocrit 42.3 % (42.0-52.0); Hemoglobin 14.4 g/dl (14.0-18.0); Imm Gran Abs Auto 0.02 X10*3/uL (0.00-0.03); Imm Gran Pct Auto 0.3 % (0.0-0.4); Lymphocytes Absolute Auto 2.7 X10*3/uL (1.2-4.9); Mean Corpuscular HGB Conc 34.0 g/dl (31.0-36.0); Mean Corpuscular Hemoglobin 30.2 pg (27.0-33.0); Mean Corpuscular Volume 88.7 fL (80.0-98.0); NRBC Abs Auto 0.000 X10*3/uL (0.0-0.012); NRBC Pct Auto 0.0 /100WBC (0.0-0.2); Platelet Count 306 X10*3/uL (160-400); Red Blood Count 4.77 X10*6/uL (4.60-5.80); White Blood Count 7.4 X10*3/uL (4.8-10.8)
[2025-01-10 13:24] LABS: Alanine Aminotransferase 37 U/L (0-40); Albumin Level 4.6 g/dL (3.5-5.0); Alkaline Phosphatase 74 U/L (39-117); Anion Gap 11 (12-20); Aspartate Amino Transferase 38 U/L (5-37); Blood Urea Nitrogen 17 mg/dL (9-16); Calcium 9.7 mg/dL (8.4-10.2); Carbon Dioxide 31 mmol/L (22-29); Chloride 105 mmol/L (96-108); Creatinine Clr Calc Pharmacy 99.3; Estimated Glomerular Filt Rate > 60; Potassium 4.4 mmol/L (3.3-5.1); Sodium 143 mmol/L (135-145); Total Protein 7.6 g/dL (6.5-8.0)
[2025-01-10 17:17] VITALS: BP 115/75; PULSE 75; RESP 18; TEMP 36.6; O2SAT 98
== END 2025-01-10 17:17 | disposition home or self-care (01) ==
PROVIDERS: Registered Nurse Emergency; Emergency Provider Emergency Medicine; PCP Internal Medicine
DX: S09.90XA Unspecified injury of head, initial encounter (principal); W18.39XA Other fall on same level, initial encounter; Y93.89 Activity, other specified; Y92.89 Other specified places as the place of occurrence of the external cause; Y99.8 Other external cause status
CPT/HCPCS: 36415; 70450; 70486; 80053; 85025; 93005; 99283; 99284

== ENCOUNTER → 2025-01-10 12:44 | Outpatient (BNV) | payer BC, SELFPAY | PROVIDERS: PCP Internal Medicine; Visit Provider Radiology Diagnostic Radiology | DX: J32.9 Chronic sinusitis, unspecified (principal); S09.90XA Unspecified injury of head, initial encounter | CPT/HCPCS: 70450; 70486 ==

== ENCOUNTER → 2025-01-10 12:45 | Outpatient (BNV) | payer BC, SELFPAY | PROVIDERS: PCP Internal Medicine; Visit Provider Internal Medicine Cardiovascular Disease | DX: R42 Dizziness and giddiness (principal) | CPT/HCPCS: 93010 ==

== ENCOUNTER 2025-04-05 21:57 | Emergency (ER) | payer BC, SELFPAY ==
--- NOTE | ~2025-04-05 | XR_ITS ---
CLINICAL HISTORY: chest pain, SOB 1 view chest x-ray Comparison: CR - XR CHEST 2V - 09/18/24 07:18 EDT Findings: The lungs are clear. Normal size heart. No acute fracture. IMPRESSION: 1. No acute findings. This document has been electronically signed by: Sergio Brantley MD on 04/05/2025 23:12:13
[2025-04-05 21:58] VITALS: BP 114/73; PULSE 120; RESP 22; TEMP 36.9; O2SAT 91; BMI 25.8
--- NOTE | 2025-04-05 22:05 | ECG_ITS ---
Test Reason : CP Blood Pressure : */* mmHG Vent. Rate : 101 BPM Atrial Rate : 101 BPM P-R Int : 132 ms QRS Dur : 78 ms QT Int : 340 ms P-R-T Axes : * -9 7 degrees QTcB Int : 440 ms Likely Sinus tachycardia with artifact on tracing Otherwise normal ECG When compared with ECG of 10-Jan-2025 12:50, Vent. rate has increased by 35 bpm Referred By: Generic ED Physician Electronically Signed By: Kelby Chatman
--- NOTE | 2025-04-05 22:12 | MHC.EDTECH ---
EKG delayed due to patient being in xray
[2025-04-05 22:26] LABS: MANUAL DIFF FLAG NO
[2025-04-05 22:27] LABS: Hematocrit 43.5 % (42.0-52.0); Hemoglobin 15.0 g/dl (14.0-18.0); Imm Gran Abs Auto 0.04 X10*3/uL (0.00-0.03); Imm Gran Pct Auto 0.3 % (0.0-0.4); Lymphocytes Absolute Auto 3.7 X10*3/uL (1.2-4.9); Mean Corpuscular HGB Conc 34.5 g/dl (31.0-36.0); Mean Corpuscular Hemoglobin 29.4 pg (27.0-33.0); Mean Corpuscular Volume 85.1 fL (80.0-98.0); NRBC Abs Auto 0.000 X10*3/uL (0.0-0.012); NRBC Pct Auto 0.0 /100WBC (0.0-0.2); Platelet Count 380 X10*3/uL (160-400); Red Blood Count 5.11 X10*6/uL (4.60-5.80); White Blood Count 12.4 X10*3/uL (4.8-10.8)
[2025-04-05 22:33] VITALS: BP 121/80; PULSE 96; RESP 13; O2SAT 96
[2025-04-05 22:38] LABS: Anion Gap 12 (12-20); Blood Urea Nitrogen 17 mg/dL (9-16); Calcium 9.9 mg/dL (8.4-10.2); Carbon Dioxide 27 mmol/L (22-29); Chloride 107 mmol/L (96-108); Creatinine Clr Calc Pharmacy 77.3; Estimated Glomerular Filt Rate > 60; Potassium 3.7 mmol/L (3.3-5.1); Sodium 142 mmol/L (135-145)
[2025-04-05 22:47] LABS: Troponin-I High Sensitivity < 2.7 ng/L (<3.5-35.0)
[2025-04-05 23:04] LABS: Resp Syncy Virus RNA Qual PCR NEGATIVE (Negative); SARS COV2 PCR INHOUSE NEGATIVE (Negative)
[2025-04-06 00:24] VITALS: BP 94/60; PULSE 78; RESP 12; TEMP 36.6; O2SAT 97
[2025-04-06] MEDS: guaiFENesin LA 600 MG TAB.ER.12H PO (00:31)
[2025-04-06 00:34] VITALS: BP 102/63; PULSE 77; RESP 14; O2SAT 96
[2025-04-06] MEDS: Albuterol Sulfate 2.5 MG, Albuterol Sulfate (0.083%) 2.5 MG 5 MG INHALE (00:40)
[2025-04-06 00:41] VITALS: PULSE 77; RESP 16; O2SAT 96
[2025-04-06 01:11] LABS: D Dimer High Sensitivity < 150 NG/ML
--- NOTE | 2025-04-06 02:25 | ED_ITS ---
HPI - SOB/Dyspnea General Chief Complaint: Dyspnea Stated Complaint: sob Time Seen by Provider: 04/05/25 22:36 Source: patient, RN notes reviewed and old records reviewed Mode of arrival: ambulatory Limitations: no limitations History of Present Illness ED Provider: Dr. Lori Cornell HPI Narrative: 49-year-old male with a history of crack cocaine use presenting with chest pain and shortness of breath that started after smoking crack today. Reports pain initially began around noon time after smoking crack and is described as sharp and substernal. Pain has been constant since it started. Worse with deep breaths. Also describes associated shortness of breath that he feels is more of a ?tightness?. Has a cough that is nonproductive. Admits that it is likely related to his cocaine use. Last use was about 20 minutes prior to arrival. Otherwise, he denies fevers, known sick contacts or travel. Also admits to occasional heroin/fentanyl use. No suicidal or homicidal ideation. No history of lung disease. No history of heart disease, family history of early onset heart disease or sudden cardiac . Related Data Previous Rx's ?Medication ?Instructions ?Recorded clindamycin HCl 300 mg capsule 300 mg PO BID 7 days #1 4 caps 03/14/20 ibuprofen 800 mg tablet (IBU) 800 mg PO Q8H Pain #30 t abs 03/14/20 amoxicillin 875 mg-potassium 1 tab PO Q12H 5 days #10 tabs 11/06/20 clavulanate 125 mg tablet (Augmentin) albuterol sulfate 90 mcg/actuation 2 inh inhalation Q6 H PRN shortness 09/18/24 breath activated powder inhaler of breath or wheezing #1 ea doxycycline monohydrate 100 mg 100 mg PO BID #14 caps 09/18/24 capsule prednisone 20 mg tablet 60 mg (3 x 20 mg) PO DAILY # 12 tabs 09/18/24 albuterol sulfate 90 mcg/actuation 2 inh inhalation Q4 H PRN shortness 04/06/25 breath activated powder inhaler of breath #1 ea guaifenesin 200 mg tablet 200 mg PO TID PRN congestion #30 04/06/25 tabs Allergies Allergy/AdvReac Type Severity Reaction Status Date / Time No Known Allergies Allergy Verified 04/05/25 22:04 Review of Systems 2 Review of Systems: as per HPI, full review of systems performed and negative but for the above mentioned pertinent positives and negatives. [facility] Past Medical History Medical History No known health problems Social History Social History Alcohol intake: never Smoked in Last 30 Days: Yes Substance Use Type: Crack/Cocaine and Heroin Substance Use Frequency: Daily Advance Directives: No Advance Directives Information Provided: No Physical Exam 2 Exam: Exam: GENERAL: Chronically ill-appearing, mild respiratory distress, unknempt. SKIN: Normal skin color for ethnicity, warm, dry, no rashes noted. HEENT:? Normocephalic, atraumatic, no stridor, EOMI. NECK: Soft, supple, full ROM, midline structures nontender, no step-offs, no deformities, no lymphadenopathy. CHEST: Heart regular tachycardia, symmetric chest rise and fall. PULMONARY: Diffuse wheezes throughout, tachypnea, diminished air movement bilaterally, mild respiratory distress. ABDOMINAL: Soft, nontender, quiet bowel sounds in all quadrants. : Deferred. MUSCULOSKELETAL: Normal tone, full range of motion, no deformities, no peripheral edema. NEURO: Alert and oriented to person, CN II through XII intact, no focal neurologic deficits.? PSYCHIATRIC: Anxious affect, poor eye contact, appropriate demeanor. Vital Signs: Vital Signs: Last Vital Signs Temp 97.4 F 04/06/25 02:54 Pulse 76 04/06/25 02:54 Resp 12 04/06/25 02:54 BP 108/71 04/06/25 02:54 Pulse Ox 96 04/06/25 02:54 O2 Del Method Room Air 04/06/25 02:54 O2 Flow Rate 2 04/06/25 00:24 BMI result Body Mass Index 25.8 Medications Administered Discontinued Medications Generic Name Dose Route Start Last Admin Trade Name Freq PRN Reason Stop Dose Admin Albuterol Sulfate 2.5 mg/ 5 mg 04/06/25 00:35 04/06/25 00:40 Albuterol Sulfate 2.5 mg INHALE 04/06/25 00:36 5 mg ONCE ONE Administration Guaifenesin 600 mg 04/06/25 00:17 04/06/25 00:31 Guaifenesin La 600 Mg Tab.Er.12h PO 04/06/25 00:18 600 mg ONCE ONE Administration Medical Decision Making Medical Decision Making [facility] Narrative: Patient presents today with chief complaint of shortness of breath. Differential diagnosis includes, but is not limited to, upper respiratory infection, pneumonia, COPD exacerbation, asthma exacerbation, CHF, pneumothorax, pleural effusion, pulmonary embolism, ACS. Broad-based work-up will be initiated to evaluate for etiology of patient's symptoms. Patient's workup today has been reassuring. Heart rate has come down after use of DuoNeb and guaifenesin. Suspect that his shortness of breath is related to crack cocaine smoking. I discussed this with the patient at length. He does not desire help with detox today. Chest x-ray is clear. Cardiac enzyme, D- dimer negative. Stable for discharge and outpatient follow up. Encouraged return to the emergency department with new or worsening shortness of breath. Differential Diagnosis Differential Diagnoses: The differential diagnosis associated with the presentation includes (As above) Admission/Observation Consideration of admission/observation: Escalation of care including admission/observation considered Lab Data [facility] Lab Attestation statement: I reviewed the patient's lab results. 04/05/25 22:14 04/05/25 22:14 Labs: Lab Results 04/05/25 04/06/25 Range/Units 22:14 00:29 WBC 12.4 H (4.8-10.8) X10*3/uL RBC 5.11 (4.60-5.80) X10*6/uL Hgb 15.0 (14.0-18.0) g/dl Hct 43.5 (42.0-52.0) % MCV 85.1 (80.0-98.0) fL MCH 29.4 (27.0-33.0) pg MCHC 34.5 (31.0-36.0) g/dl RDW 12.9 (11.0-16.0) % Plt Count 380 (160-400) X10*3/uL MPV 9.2 L (9.4-12.4) fL Immature Gran % (Auto) 0.3 (0.0-0.4) % Neut % (Auto) 53.9 (45-73) % Lymph % (Auto) 30.1 (20-40) % [place] % (Auto) 9.8 (2-11) % Eos % (Auto) 5.0 H (0-4) % Baso % (Auto) 0.9 (0-2) % Lymph # (Auto) 3.7 (1.2-4.9) X10*3/uL [place] # (Auto) 1.2 (0.1-1.2) X10*3/uL Eos # (Auto) 0.6 H (0.0-0.4) X10*3/uL Baso # (Auto) 0.1 (0.0-0.2) X10*3/uL Abs Immat Gran (auto) 0.04 H (0.00-0.03) X10*3/uL Absolute Neuts (auto) 6.7 (2.0-8.3) x10*3/uL Absolute Nucleated RBC 0.000 (0.0-0.012) X10*3/uL Nucleated RBC % (auto) 0.0 (0.0-0.2) /100WBC D-Dimer High Sensitivty < 150 NG/ML Sodium 142 (135-145) mmol/L Potassium 3.7 (3.3-5.1) mmol/L Chloride 107 (96-108) mmol/L Carbon Dioxide 27 (22-29) mmol/L Anion Gap 12 (12-20) BUN 17 H (9-16) mg/dL Creatinine 1.08 (0.5-1.4) mg/dL Estim Creat Clear Calc 77.3 Estimated GFR > 60 Random Glucose 129 H (60-115) mg/dL Calcium 9.9 (8.4-10.2) mg/dL Troponin I High Sens < 2.7 (<3.5-35.0) ng/L Influenza Type A (PCR) NEGATIVE (Negative) Influenza Type B (PCR) NEGATIVE (Negative) RSV RNA Qual (PCR) NEGATIVE (Negative) SARS-CoV-2 RNA (RT-PCR) NEGATIVE (Negative) Independent Interpretation I performed an independent interpretation of an: EKG and Plain X-Ray Interpretation: My independent interpretation of the chest x-ray reveals no consolidations, pulmonary edema, pleural effusion, pneumothorax, obvious bony abnormalities. My independent interpretation of the ECG reveals normal sinus tachycardia with rate of 1010, leftward axis, normal intervals, no ST elevations or depressions to suggest ischemic changes, baseline artifact, relatively unchanged from previous on 01/10/2025. Radiology Impression Discussion of test interpretation with radiology: I have reviewed the radiologist's reading. External Record Review External record reviewed: Inpatient record Prescription Management I considered prescription management with: Other (Bronchodilators, guaifenesin) Chronic Conditions Patient?s care impacted by: Other (Substance use disorder) Social Determinants Patient?s care significantly limited by Social Determinants of Health including: Other Social Determinant of Health Discharge Plan Discharge Clinical Impression: Pneumonitis due to crack cocaine Patient Disposition: Home, Self-Care Instructions: Pneumonitis (ED), Cocaine Use Disorder (ED) Additional Instructions: The difficulty breathing and chest discomfort you described today is likely related to the use of crack cocaine. If you need help with your addiction, you can always return to the emergency department for treatment. In the meantime, use your albuterol inhaler as needed if you are feeling short of breath. Return to the emergency department with any new or worsening symptoms including: Worsening shortness of breath, chest pain, fevers greater than 100?, changes in your sputum production, any new symptom that concerns you. Call 911 with any medical emergency. Prescriptions: New albuterol sulfate 90 mcg/actuation aerosol powdr breath activated 2 inh inhalation Q4H PRN (Reason: shortness of breath) Qty: 1 0RF guaifenesin 200 mg tablet 200 mg PO TID PRN (Reason: congestion) Qty: 30 0RF No Action amoxicillin-pot clavulanate [Augmentin] 875-125 mg tablet 1 tab PO Q12H 5 Days Qty: 10 0RF clindamycin HCl 300 mg capsule 300 mg PO BID 7 Days Qty: 14 0RF ibuprofen [IBU] 800 mg tablet 800 mg PO Q8H Qty: 30 0RF albuterol sulfate 90 mcg/actuation aerosol powdr breath activated 2 inh inhalation Q6H PRN (Reason: shortness of breath or wheezing) Qty: 1 0RF prednisone 20 mg tablet 60 mg PO DAILY Qty: 12 0RF doxycycline monohydrate 100 mg capsule 100 mg PO BID Qty: 14 0RF Interventions: ED Discharge Assessment Last Done: 04/06/25 02:54 Discharge Date/Time: 04/06/25 03:05 Print Language: Cambodian
[2025-04-06 02:54] VITALS: BP 108/71; PULSE 76; RESP 12; TEMP 36.3; O2SAT 96
== END 2025-04-06 03:05 | disposition home or self-care (01) ==
PROVIDERS: Emergency Provider Emergency Medicine; PCP Internal Medicine
DX: T40.5X1A Poisoning by cocaine, accidental (unintentional), initial encounter (principal); J68.0 Bronchitis and pneumonitis due to chemicals, gases, fumes and vapors; Y92.9 Unspecified place or not applicable
CPT/HCPCS: 36415; 71045; 80048; 84484; 85025; 85379; 87637; 93005; 94640; 99284; 99285

== ENCOUNTER → 2025-04-05 22:05 | Outpatient (BNV) | payer BC, SELFPAY | PROVIDERS: Emergency Provider Emergency Medicine; PCP Internal Medicine; Visit Provider Radiology Diagnostic Radiology | DX: R07.9 Chest pain, unspecified (principal); R06.02 Shortness of breath | CPT/HCPCS: 71045 ==

== ENCOUNTER → 2025-04-05 22:05 | Outpatient (BNV) | payer BC, SELFPAY | PROVIDERS: Emergency Provider Emergency Medicine; PCP Internal Medicine; Visit Provider Internal Medicine Cardiovascular Disease | DX: R07.9 Chest pain, unspecified (principal) | CPT/HCPCS: 93010 ==

== ENCOUNTER 2025-05-30 18:43 | Emergency (ER) | payer MEDICAID, SELFPAY ==
[2025-05-30] VITALS (11 sets, daily range): BP systolic 95–139; BP diastolic 51–94; PULSE 75–95; RESP 15–20; TEMP 36.3; O2SAT 92–100; BMI 27.4
--- NOTE | ~2025-05-30 | XR_ITS ---
CLINICAL HISTORY: s p thoracostomy 1 view chest x-ray. Comparison: CR - XR CHEST 2V - 05/30/25 19:43 EST Findings: There is interval placement of a pigtail style chest tube on the left with the distal tip projecting over the left infrahilar region. There appears to be interval resolution of the previously demonstrated left-sided pneumothorax. No significant residual pneumothorax identified on this exam. No right pneumothorax. No pleural effusion visualized. No focal pulmonary consolidation. Minimal streaky bibasilar opacities are present. Normal heart size. Impression: 1. Interval placement of a left-sided chest tube as described above with interval resolution of the previously demonstrated left pneumothorax. No significant mediastinal shift present. 2. Minimal streaky bibasilar subsegmental atelectasis. No focal pulmonary consolidation. This document has been electronically signed by: Kyrie Leonard MD on 05/30/2025 21:27:39
--- NOTE | ~2025-05-30 | CT_ITS ---
CLINICAL HISTORY: Unexpected pain after thoracostomy for spont pnem CT chest without contrast Comparison: CR - XR CHEST 1V - 05/30/25 21:03 EST Findings: Mild motion artifact present. Normal heart,size. No significant pericardial effusion. No thoracic aorta aneurysm. A left-sided chest tube is in place from a left anterolateral chest wall approach with the distal tip of the catheter projecting over the anteromedial aspect of the left lung near the superior margin of the heart. There is mild soft tissue gas at the left chest wall along the catheter course. There is a small left anterior pneumothorax. No right pneumothorax or pleural effusion identified. There is [id number] paraseptal emphysema at the bilateral upper lobes with minimal to mild bibasilar atelectasis. Limited view of the upper abdomen is normal. No acute fractures. Impression: 1. Left-sided chest tube in place as described above with a small left anterior pneumothorax. A small amount of soft tissue gas is identified at the left chest wall along the course of the catheter. No significant mediastinal shift. 2. Minimal to mild bibasilar atelectasis. There is [id number] paraseptal emphysema at the bilateral upper lobes. This document has been electronically signed by: Kyrie Leonard MD on 05/30/2025 22:42:32
--- NOTE | ~2025-05-30 | XR_ITS ---
CLINICAL HISTORY: chest pain 2 view chest x-ray. Comparison: 04/05/2025 Findings: There is a large left pneumothorax (likely greater than 70% size), with very slight rightward deviation of cardiomediastinal contents, compatible with tension pneumothorax. No focal consolidation or pleural effusions. Cardiac and mediastinal contours are somewhat obscured on the left and otherwise grossly unremarkable.. Bones unremarkable. Impression: 1. Large tension pneumothorax on the left. This document has been electronically signed by: Mono Cooley MD on 05/30/2025 19:58:28
--- NOTE | 2025-05-30 18:48 | ECG_ITS ---
Test Reason : CP Blood Pressure : */* mmHG Vent. Rate : 88 BPM Atrial Rate : 88 BPM P-R Int : 144 ms QRS Dur : 78 ms QT Int : 372 ms P-R-T Axes : 73 76 60 degrees QTcB Int : 450 ms Normal sinus rhythm Normal ECG When compared with ECG of 05-Apr-2025 22:18, No significant changes seen Referred By: Generic ED Physician Electronically Signed By: MICAH JOHNSON
--- NOTE | 2025-05-30 19:26 | ED_ITS ---
HPI - Chest Pain General Chief Complaint: Chest Pain Stated Complaint: chest pain Time Seen by Provider: 05/30/25 20:06 History of Present Illness ED Provider: Nan LENZ narrative: The patient is a 49-year-old male who developed left-sided chest pain about an hour prior to arrival. He says this started when he was having a bowel movement on the toilet. He may has been straining at stool. He has a history of opioid use disorder and is on methadone. The pain is pleuritic. He denies any injury. He denies any fever, sweats, chills. Related Data Previous Rx's ?Medication ?Instructions ?Recorded clindamycin HCl 300 mg capsule 300 mg PO BID 7 days #1 4 caps 03/14/20 ibuprofen 800 mg tablet (IBU) 800 mg PO Q8H Pain #30 t abs 03/14/20 amoxicillin 875 mg-potassium 1 tab PO Q12H 5 days #10 tabs 11/06/20 clavulanate 125 mg tablet (Augmentin) albuterol sulfate 90 mcg/actuation 2 inh inhalation Q6 H PRN shortness 09/18/24 breath activated powder inhaler of breath or wheezing #1 ea doxycycline monohydrate 100 mg 100 mg PO BID #14 caps 09/18/24 capsule prednisone 20 mg tablet 60 mg (3 x 20 mg) PO DAILY # 12 tabs 09/18/24 albuterol sulfate 90 mcg/actuation 2 inh inhalation Q4 H PRN shortness 04/06/25 breath activated powder inhaler of breath #1 ea guaifenesin 200 mg tablet 200 mg PO TID PRN congestion #30 04/06/25 tabs Allergies Allergy/AdvReac Type Severity Reaction Status Date / Time No Known Allergies Allergy Verified 05/30/25 19:25 Review of Systems 2 Review of Systems: Yes all other systems are reviewed and are negative PMFSH Past Medical History Medical History No known health problems Social History Social History Alcohol intake: never Substance Use Type: Crack/Cocaine and Heroin Advance Directives: No Advance Directives Information Provided: No Physical Exam 2 Vital Signs: Vital Signs: Last Vital Signs Temp 97.4 F 05/30/25 19:24 Pulse 83 12/29/25 22:08 Resp 17 05/30/25 22:08 BP 103/73 05/30/25 22:08 Pulse Ox 97 05/30/25 22:08 O2 Del Method Oxymask 05/30/25 22:08 O2 Flow Rate 4 05/30/25 22:08 BMI result Body Mass Index 27.4 Const: Other: The patient is awake and alert. He looks mildly uncomfortable but not in acute distress. Orientation/consciousness: patient oriented x3 HEENT: Other: The face is symmetrical. ?Mucous membranes moist. The patient has very poor dentition. Eyes: Other: Pupils are round equal, conjunctivae are clear, extraocular movements intact Neck: Other: Moving his neck easily Neck: Yes normal visual inspection and Yes full ROM Chest: Other: I did not appreciate any definite subcutaneous emphysema. No chest wall tenderness. Resp: Other: Normal breath sounds in the right side, diminished breath sounds in the left side. Cardio: Rate: regular rate Rhythm: regular rhythm Heart sounds: S1 normal heart sound present and S2 normal heart sound present GI: Other: Abdomen is soft and nontender Skin: Other: Skin was dry and unremarkable Neuro: General: patient oriented x3, gait normal, tone normal, moves all extremities, no focal motor deficits and CN's II-XI intact bilaterally Extrem: Other: There is no calf swelling or tenderness. No asymmetry. No peripheral edema. Course Course Course Narrative: Rapid medical examination performed in triage by Lea Godwin PA-C: Patient is a 49 year old male presenting to the emergency department with chest pain. Detailed physical exam and review of systems are deferred to the alcohol and drug counselor. EKG, labs, imaging, swabs ordered. Patient placed back in the waiting room pending room availability and results. Medications Administered Discontinued Medications Generic Name Dose Route Start Last Admin Trade Name Freq PRN Reason Stop Dose Admin Cefazolin Sodium 1 gm 05/30/25 20:18 05/30/25 20:26 Cefazolin Sodium 1 Gm Vial IVPUSH 05/30/25 20:19 1 gm ONCE ONE Administration Diazepam 5 mg 05/30/25 20:09 05/30/25 20:30 Diazepam 10 Mg/2 Ml Cartridge IVPUSH 05/30/25 20:10 5 mg STAT STA Administration Diazepam 10 mg 05/30/25 20:58 05/30/25 21:11 Diazepam 10 Mg/2 Ml Cartridge IVPUSH 05/30/25 20:59 10 mg STAT STA Administration Fentanyl 100 mcg 05/30/25 21:30 05/30/25 21:34 Fentanyl Citrate/Pf 100 Mcg/2 Ml Vial IVPUSH 05/30/25 21:31 100 mcg ONCE ONE Administration Protocol Hydromorphone HCl 0.5 mg 05/30/25 20:09 05/30/25 20:30 Hydromorphone Hcl 0.5 Mg/0.5 Ml Syringe IVPUSH 05/30/25 20:10 0.5 mg ONCE ONE Administration Protocol Hydromorphone HCl 1 mg 05/30/25 20:38 05/30/25 20:39 Hydromorphone Hcl 1 Mg/Ml Syringe IVPUSH 05/30/25 20:39 1 mg ONCE ONE Administration Protocol Hydromorphone HCl 1 mg 05/30/25 20:58 05/30/25 21:02 Hydromorphone Hcl 1 Mg/Ml Syringe IVPUSH 05/30/25 20:59 1 mg ONCE ONE Administration Protocol Hydromorphone HCl 1 mg 05/30/25 21:07 05/30/25 21:11 Hydromorphone Hcl 1 Mg/Ml Syringe IVPUSH 05/30/25 21:08 1 mg ONCE ONE Administration Protocol Sodium Chloride 1,000 mls @ 999 mls/hr 05/30/25 21:30 05/30/25 23:19 Ns IV 05/30/25 22:30 Infused .Q1H1M LADY Infusion Acetaminophen 1,000 mg in 100 mls @ 400 mls/hr 05/30/25 21:30 05/30/25 22:30 Ofirmev IV 05/30/25 21:44 Infused ONCE ONE Infusion Ketorolac Tromethamine 15 mg 05/30/25 21:07 05/30/25 21:11 Ketorolac Tromethamine 15 Mg/Ml Vial IVPUSH 05/30/25 21:08 15 mg ONCE ONE Administration Lidocaine/Epinephrine 10 ml 05/30/25 20:20 05/30/25 20:26 Lidocaine Hcl 1%/Epi 1:100,000 10 Ml Vial INFILTRATI 05/30/25 20:21 10 ml ONCE ONE Administration Midazolam HCl 4 mg 05/30/25 21:39 05/30/25 21:43 Midazolam Hcl 2 Mg/2 Ml Vial IVPUSH 05/30/25 21:40 4 mg ONCE ONE Administration Procedures Chest Tube Chest Tube 1: Chest Tube Location: left and anterior axillary line Chest Tube Prep: Yes betadine prep and sterile drapes applied Local Anesthetic: lidocaine 1% and with epi Amount of anesthesia used (mL): 10 Incision Made With: #11 blade Post Procedure: sutured to skin and sterile dressing applied Tube Drainage: none Post Procedure CXR?: Yes Patient Tolerated Procedure: Yes Complications: pain (The patient had a great deal of post procedural pain.) Progress: A post insertion x-ray showed good reexpansion of the lung. A noncontrast CT scan of the chest was done because of severe post procedural pain. No obvious explanation for the pain was seen on CAT scan. No obvious complications. Medical Decision Making Medical Decision Making MDM Narrative: The patient is a 49-year-old male who presents with a complete left-sided pneumothorax that seems to be a spontaneous pneumothorax that occurred while he was having a bowel movement. My assumption is that he strained on the toilet and caused a pneumothorax as a result of the straining. Despite the large size of the left pneumothorax the patient did not appear in overt respiratory distress. I reviewed the x-ray findings with the patient and explained the need for a tube thoracostomy. The patient consented to the procedure and signed consent. Under sterile conditions I placed a 14 Georgian pigtail catheter in the patient's left axillary line at the level of the nipple. Care was taken to go just above the rib. Air was aspirated in placing the tube. Seldinger technique was used. 2 g of cefazolin IV has been given prophylactically prior to the procedure. The procedure has been done with the patient lying on his right side. When he laid back after the procedure he seemed to experience severe pain that made him extremely restless. The patient has been given diazepam and hydromorphone prior to the procedure. He was given several doses of hydromorphone following the procedure. Also ultimately a dose of ketorolac and fentanyl. Given the degree of pain we obtained a noncontrast CT scan of the chest to look for any possible complication. No definite complication was seen on CAT scan to account for his pain. Fortunately, the patient is degree of pain seemed to subside and he ultimately seemed fairly comfortable. Since we do not have thoracic surgery at this hospital I felt the patient should be transferred. I contacted [facility] and [facility] and they were both closed transfers. The patient was accepted at [facility] in [place]. I spoke with the general surgeon on-call at [facility]. The patient will be accepted in an emergency department to emergency department transfer with the accepting physician being in the emergency physician. Lab Data 05/30/25 19:52 05/30/25 19:52 Labs: Lab Results 05/30/25 Range/Units 19:52 WBC 18.5 H (4.8-10.8) X10*3/uL RBC 5.79 (4.60-5.80) X10*6/uL Hgb 16.9 (14.0-18.0) g/dl Hct 49.3 (42.0-52.0) % MCV 85.1 (80.0-98.0) fL MCH 29.2 (27.0-33.0) pg MCHC 34.3 (31.0-36.0) g/dl RDW 14.0 (11.0-16.0) % Plt Count 391 (160-400) X10*3/uL MPV 8.9 L (9.4-12.4) fL Immature Gran % (Auto) 0.9 H (0.0-0.4) % Neut % (Auto) 83.0 H (45-73) % Lymph % (Auto) 10.1 L (20-40) % [place] % (Auto) 5.0 (2-11) % Eos % (Auto) 0.5 (0-4) % Baso % (Auto) 0.5 (0-2) % Lymph # (Auto) 1.9 (1.2-4.9) X10*3/uL [place] # (Auto) 0.9 (0.1-1.2) X10*3/uL Eos # (Auto) 0.1 (0.0-0.4) X10*3/uL Baso # (Auto) 0.1 (0.0-0.2) X10*3/uL Abs Immat Gran (auto) 0.16 H (0.00-0.03) X10*3/uL Absolute Neuts (auto) 15.3 H (2.0-8.3) x10*3/uL Absolute Nucleated RBC 0.000 (0.0-0.012) X10*3/uL Nucleated RBC % (auto) 0.0 (0.0-0.2) /100WBC Sodium 142 (135-145) mmol/L Potassium 4.8 D (3.3-5.1) mmol/L Chloride 103 (96-108) mmol/L Carbon Dioxide 26 (22-29) mmol/L Anion Gap 18 (12-20) BUN 22 H (9-16) mg/dL Creatinine 0.99 (0.5-1.4) mg/dL Estim Creat Clear Calc 91.1 Estimated GFR > 60 Random Glucose 97 (60-115) mg/dL Calcium 10.6 H D (8.4-10.2) mg/dL Magnesium 2.1 (1.6-2.6) mg/dL Total Bilirubin 0.4 (0.0-1.0) mg/dL AST 39 H (5-37) U/L ALT 55 H (0-40) U/L Alkaline Phosphatase 96 (39-117) U/L Troponin I High Sens < 2.7 (<3.5-35.0) ng/L NT-Pro-B Natriuret Pep < 15.8 (<300) pg/mL Total Protein 9.0 H (6.5-8.0) g/dL Albumin 5.3 H (3.5-5.0) g/dL Influenza Type A (PCR) NEGATIVE (Negative) Influenza Type B (PCR) NEGATIVE (Negative) RSV RNA Qual (PCR) NEGATIVE (Negative) SARS-CoV-2 RNA (RT-PCR) NEGATIVE (Negative) Critical Care Time Critical Care Time Critical Care Time: Yes Total Critical Care Time: 35 Attestation: The patient was critically ill with a high probability of imminent or life- threatening deterioration. ?I spent greater than 30 minutes of discontinuous time evaluating the patient, delivering critical care at the bedside, discussing evaluating data with consultants. ?Critical care time does not include time spent performing separately billable procedures or teaching. ?Time spent performing critical care with 35 minutes. Discharge Plan Discharge Clinical Impression: Spontaneous pneumothorax Patient Disposition: [facility] Transfer Details: Emergency department of [facility] Prescriptions: No Action amoxicillin-pot clavulanate [Augmentin] 875-125 mg tablet 1 tab PO Q12H 5 Days Qty: 10 0RF clindamycin HCl 300 mg capsule 300 mg PO BID 7 Days Qty: 14 0RF ibuprofen [IBU] 800 mg tablet 800 mg PO Q8H Qty: 30 0RF albuterol sulfate 90 mcg/actuation aerosol powdr breath activated 2 inh inhalation Q4H PRN (Reason: shortness of breath) Qty: 1 0RF guaifenesin 200 mg tablet 200 mg PO TID PRN (Reason: congestion) Qty: 30 0RF albuterol sulfate 90 mcg/actuation aerosol powdr breath activated 2 inh inhalation Q6H PRN (Reason: shortness of breath or wheezing) Qty: 1 0RF prednisone 20 mg tablet 60 mg PO DAILY Qty: 12 0RF doxycycline monohydrate 100 mg capsule 100 mg PO BID Qty: 14 0RF Print Language: Croatian
[2025-05-30 19:57] LABS: MANUAL DIFF FLAG NO
[2025-05-30 19:58] LABS: Hematocrit 49.3 % (42.0-52.0); Hemoglobin 16.9 g/dl (14.0-18.0); Imm Gran Abs Auto 0.16 X10*3/uL (0.00-0.03); Imm Gran Pct Auto 0.9 % (0.0-0.4); Lymphocytes Absolute Auto 1.9 X10*3/uL (1.2-4.9); Mean Corpuscular HGB Conc 34.3 g/dl (31.0-36.0); Mean Corpuscular Hemoglobin 29.2 pg (27.0-33.0); Mean Corpuscular Volume 85.1 fL (80.0-98.0); NRBC Abs Auto 0.000 X10*3/uL (0.0-0.012); NRBC Pct Auto 0.0 /100WBC (0.0-0.2); Platelet Count 391 X10*3/uL (160-400); Red Blood Count 5.79 X10*6/uL (4.60-5.80); White Blood Count 18.5 X10*3/uL (4.8-10.8)
[2025-05-30 20:14] LABS: Alanine Aminotransferase 55 U/L (0-40); Albumin Level 5.3 g/dL (3.5-5.0); Alkaline Phosphatase 96 U/L (39-117); Anion Gap 18 (12-20); Aspartate Amino Transferase 39 U/L (5-37); Blood Urea Nitrogen 22 mg/dL (9-16); Calcium 10.6 mg/dL (8.4-10.2); Carbon Dioxide 26 mmol/L (22-29); Chloride 103 mmol/L (96-108); Creatinine Clr Calc Pharmacy 91.1; Estimated Glomerular Filt Rate > 60; Magnesium 2.1 mg/dL (1.6-2.6); Potassium 4.8 mmol/L (3.3-5.1); Sodium 142 mmol/L (135-145); Total Protein 9.0 g/dL (6.5-8.0)
[2025-05-30 20:20] LABS: NT Pro B Type Natriuretic Pept < 15.8 pg/mL (<300); Troponin-I High Sensitivity < 2.7 ng/L (<3.5-35.0)
--- NOTE | 2025-05-30 20:23 | PC.NURSE ---
Per MD Montana no blood cultures prior to ABX.
[2025-05-30] MEDS: Lidocaine HCl 1%/Epi 1:100,000 10 ML VIAL INFILTRATI (20:26)
[2025-05-30] MEDS: diazePAM 10 MG/2 ML CARTRIDGE 5 MG IVPUSH (20:30)
--- NOTE | 2025-05-30 20:34 | PC.NURSE ---
MD Montana at bedside, timeout completed, correct pt and procedure verified. pt medicated per jul.
--- NOTE | 2025-05-30 20:38 | PC.NURSE ---
verbal order for 1mg IV Push dilaudid placed at this time per MD Montana
[2025-05-30 20:41] LABS: Resp Syncy Virus RNA Qual PCR NEGATIVE (Negative); SARS COV2 PCR INHOUSE NEGATIVE (Negative)
[2025-05-30] MEDS: diazePAM 10 MG/2 ML CARTRIDGE IVPUSH (21:11)
--- NOTE | 2025-05-30 21:12 | PC.NURSE ---
after chest tube insertion complete, pt became diaphoretic and reports 10/10 excruciating left chest pain, .MD Montana at bedside, pt medicated per jul.
--- OUTSIDE RECORDS SUMMARY | 2025-05-30 21:39 | XMS_ITS | Encounter Summary ---
Author Organization [employer] Address [address] [place] [address] [address] [place] [address] Care Team Providers Care Inspector Balance Wheel Motion Name Role Phone Lonnie Allred MD Primary Care Provide r Reason for Visit * Reason Comments Med Refill Encounter Details Date Type Department Care Team (Late st Contact Info) Description 02/24/2023 Refill [facility] ADULT DENTAL [address] [place] [address] Silvestre Moreno, DMD [address] [place] [address] History of tooth extraction, unspecified edentulism class Social History Tobacco Use Types Packs/Day Years Used Date Smoking Tobacco: Every Day Cigarettes Passive Smoke Exposure: Never Smokeless Tobacco: Never Alcohol Use Standard Drinks/Week Comments Never 0 (1 standard drink = 0.6 oz pur e alcohol) Sex and Gender Information Value Date Recorded Sex Assigned at Male 04/01/2022 10:15 AM EDT Legal Sex Male 10:15 AM EDT Gender Identity Male 04/01/2022 10:15 AM EDT Sexual Orientation Straight 04/01/2022 10 :15 AM EDT documented as of this encounter Plan of Treatment Upcoming Encounters Date Type Department Care Team (Late st Contact Info) Description 05/31/2025 10:15 AM EST Office Visit [facility] MED[facility]INE [address] [place] [address] Lonnie Allred MD [address] [place] [address] documented as of this encounter Visit Diagnoses Diagnosis History of tooth extraction, unspecified edentulism class documented in this encounter Care Teams Inspector Balance Wheel Motion Relationship Specialty Start Date End Date Lonnie Allred MD [address] [place] [id number] PCP - General Internal Medicine 05/12/14 documented as of this encounter
--- OUTSIDE RECORDS SUMMARY | 2025-05-30 21:39 | XMS_ITS | Encounter Summary ---
Author Organization [employer] Address [address] [place] [address] [address] [place] [address] Care Team Providers Care Project Management Director Name Role Phone Lonnie Allred MD Primary Care Provide r Reason for Visit * Reason Onset Date Comments Appointment 06/06/2022 Patient wants to schedule appt with provider for dentures. He was seeing [employer] student prior to extractions with Dr. Sudol. VICENTE Encounter Details Date Type Department Care Team (Late st Contact Info) Description 06/06/[address] [facility] ADULT DENTAL [address] [place] [address] Silvestre Moreno, DMD [address] [place], [place] [id number] Appointment (Patient wants to schedule appt with provider for dentures. He was seeing [employer] student prior to extractions with Dr. Sudol. VICENTE) Social History Tobacco Use Types Packs/Day Years [...] Orientation Straight 04/01/2022 10 :15 AM EDT COVID-19 Exposure Response Date Recorded In the last 10 days, have yo u been in contact with someone who was confirmed or suspected to have Coronavirus/COVID-19? No / Unsure 05/27/2022 10:50 AM EST documented as of this encounter Miscellaneous Notes * Telephone Encounter - Ritu Selby - 06/06/2022 9:54 AM EST Patient wants to schedule appt with provider for dentures. He was seeing [employer] student prior to extractions with Dr. Moreno. DR documented in this encounter Plan of Treatment Upcoming Encounters Date Type Department Care Team (Late st Contact Info) Description 05/31/2025 10:15 AM EST Office Visit [facility] MED[facility]INE [address] [place] [address] Lonnie Allred MD [address] [place] [address] documented as of this encounter Visit Diagnoses Not on filedocumented in this encounter Care Teams Project Management Director Relationship Specialty Start Date End Date Lonnie Allred MD [address] [place] [address] PCP - General Internal Medicine 05/12/14 documented as of this encounter
--- OUTSIDE RECORDS SUMMARY | 2025-05-30 21:39 | XMS_ITS | Clinical Summary ---
Author Organization [employer] Address [address] [place] [address] [address] [place] [address] Care Team Providers Care Reading Instructor Name Role Phone Lonnie Allred MD Primary Care Provide r Allergies No known active allergies Medications * This document contains information received from the source organization and may not represent a complete record from that organization. Blood Pressure Monitoring (Omron 3 Series BP Monitor) device 12/05/19 22 Active methadone (Dolophine) 10 MG tablet Take 3 tablets by mouth at bed time. Active [place]-3 Fatty Acids (GNP Fish Oil Max St) 1200 MG capsule delayed-release Take 1 tablet by mouth. 12/25/19 22 Active ketoconazole (NIZOral) 2 % creamIndication s:Tinea pedis of both feet APPLY TO AFFECTED AREA(S) TWICE DAILY 60 g 2 05/30/20 22 Active clotrimazole-be tamethasone (Lotrisone) cream Apply topically every 12 (twelve) hours. 04/10/20 22 Active nicotine polacrilex (Nicorette) 2 MG gum Take by mouth every 2 (two) hours. 05/01/20 22 Active omeprazole (PriLOSEC) [address] capsuleIndicati ons:Gastroesoph ageal reflux disease without esophagitis TAKE 1 CAPSULE BY MOUTH ONCE DAILY 90 capsule 1 10/28/19 25 Active cetirizine (ZyrTEC) 10 MG tabletIndicatio ns:Seasonal allergies TAKE 1 TABLET BY MOUTH EVERY DAY 90 tablet 1 5 9:31 AM EST 10/28/19 25 Active fluticasone (Flonase) 50 MCG/ACT nasal sprayIndication s:Seasonal allergies INSTILL 2 SPRAYS IN EACH NOSTRIL ONCE DAILY 48 g 1 10/28/19 25 Active cyclobenzaprine (Flexeril) 5 MG tabletIndicatio ns:Muscle spasm TAKE 1 TABLET BY MOUTH THREE TIMES DAILY 20 tablet 1 11/12/19 25 Active cloNIDine (Catapres) 0.1 MG tabletIndicatio ns:Uncomplicate d opioid dependence (CMS/HCC) (HCC),Anxiety Take 1 tablet (0.1 mg) by mouth if needed in the morning and at bedtime (as needed for comfort). 21 tablet 5 1:52 PM EST 05/17/20 25 026 Active hydrOXYzine HCl (Atarax) 25 MG tabletIndicatio ns:Uncomplicate d opioid dependence (CMS/HCC) (HCC),Anxiety Take 1 tablet (25 mg) by mouth if needed in the morning and at bedtime for itching. 120 tablet 5 1:52 PM EST 05/17/20 25 026 Active Ventolin HFA 108 (90 Base) MCG/ACT inhalerIndicati ons:Pneumonitis INHALE 2 PUFFS BY MOUTH EVERY 6 HOURS NEEDED FOR WHEEZING 18 g 5 8:18 AM EST 05/17/20 25 Active cloNIDine (Catapres) 0.1 MG tabletIndicatio ns:Uncomplicate d opioid dependence (CMS/HCC) (HCC) Take 1 tablet (0.1 mg) by mouth if needed in the morning, at noon, and at bedtime (as needed for comfort) for up to 21 days. 21 tablet 01/22/20 25 025 Discontinued(Re order (will not trigger notification to Pharmacy)) hydrOXYzine HCl (Atarax) 25 MG tabletIndicatio ns:Uncomplicate d opioid dependence (CMS/HCC) (HCC) Take 1 tablet (25 mg) by mouth 4 times daily. 120 tablet 01/22/20 25 025 Discontinued(Re order (will not trigger notification to Pharmacy)) albuterol 108 (90 Base) MCG/ACT inhalerIndicati ons:Pneumonitis Inhale 2 puffs every 6 (six) hours if needed for wheezing. 18 g 5 4:16 PM EST 04/12/20 25 025 Discontinued Active Problems Problem Noted Date Diagnosed Date Moderate episode of recurren t major depressive disorder (CMS/HCC) 05/18/2025 Assessment & Plan (10/27/2024 3:39 PM EDT): Pt's PHQ 9 was Positive, back in June he was referred to our I he said his phone was disconnected. Will refer back Pt has been out of work since October 05 ( he was suspended ). Pt today tells me he completes his treatment with [facility] tomorrow 10/28/2024 and is ready and interested to go back to work. Pt is no longer doing illicit substances and will remain on Methadone Program Vertigo 01/21/2025 Assessment & Plan (01/21/2025 12:13 PM EDT): Referral to PT Consistent with BPPV Prn meclizine, Orders: Referral to Physical Therapy; Future meclizine (Antivert) 25 MG tablet; Take 1 tablet (25 mg) by mouth if needed in the morning, at noon, and at bedtime for dizziness (as needed for dizziness) for up to 10 days. Routine physical examination 12/07/2024 Assessment & Plan (12/07/2024 10:52 AM EDT): Patient is here for a routine physical examination. 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 Eustachian tube dysfunction ? 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 Eustachian tube dysfunction ? 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 Eustachian tube dysfunction ? VS inner ear damage associated with exposure to high levels of noise Plan: Zyrtec, Flonase, ENT referral given associated ringing Complete edentulism 10/02/2022 Anxiety 05/21/2022 Lumbar back pain 05/21/2022 Hypertriglyceridemia 05/09/2022 Opioid dependence 05/09/2022 Assessment & Plan (01/21/2025 12:13 PM EDT): May use as needed, Orders: cloNIDine (Catapres) 0.1 MG tablet; Take 1 tablet (0.1 mg) by mouth if needed in the morning, at noon, and at bedtime (as needed for comfort) for up to 21 days. hydrOXYzine HCl (Atarax) 25 MG tablet; Take 1 tablet (25 mg) by mouth 4 times daily. Assessment & Plan (10/27/2024 3:43 PM EDT): Patient is currently on a Methadone Program 90 mg daily. At [facility]. Pt has been going there for 2 years. He mentions he recently tested positive for Cocaine in September 15. 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 Pt was suspended from work October 05 but is ready to go back as soon as October 28 after completing the EAP program at work Bipolar 1 disorder (CMS/HCC) 05/09/2022 Impaired fasting glucose 06/02/1959 Encounters * This document contains information received from the source organization and may not represent a complete record from that organization. Date Type Department Care Team Description 05/30/2025 Orders Only GENERIC EXTERNAL DATA DEPARTMENT Provider, Generic External Data 05/30/[address] [facility] [address] [place] [address] Lonnie Allred MD chart prep 05/17/2025 1:00 PM EST Office Visit [facility] [address] [place] [address] Yeni Velazco MD Anxiety (Primary Dx); Uncomplicated opioid dependence (CMS/HCC) (HCC) 05/17/[address] [facility] [address] [place] [phone] Radha Stearns [place] 05/17/[address] [facility] [address] [place] [address] Lonnie Allred MD Pneumonitis 05/17/2025 Travel 05/11/[address] [facility] [address] [place] [address] Lonnie Allred MD 05/04/2025 Population Health Risk Score [facility] Department [address] [phone] Provider, Population Health Generic 04/12/2025 Orders Only [facility] [address] [place] [address] Lonnie Allred MD Pneumonitis (Primary Dx) 04/11/[address] [facility] [address] [place] [phone] Lonnie Allred MD 04/06/2025 Orders Only GENERIC EXTERNAL DATA DEPARTMENT Provider, Generic External Data 04/05/2025 Orders Only GENERIC EXTERNAL DATA DEPARTMENT Provider, Generic External Data from Last 3 Months Immunizations Immunization Administration Dates Next Due DTP 12/31/1988, 1,05/13/1977,1975,02/14/1976,1975 Hep A, ped/adol, 2 dose 02/14/2010 Hep B, Adolescent or Pediatric 06/13/1995,1992,03/06/1993 Hep B, adult 04/11/2010,02/14/2010 IPV 09/05/1980, 7,04/03/1976,1975,1975 Influenza, Split (incl. destiny fied surface antigen) 05/18/2012 MMR 02/17/1980,01/16/1977 Pneumococcal Conjugate PCV 20 12/07/2024 TD (adult), 2 Lf tetanus tox oid, preservative free, adsorbed 05/19/2007,07/03/1994 Tdap 10/05/2013 Social History Tobacco Use Types Packs/Day Years Used Date Smoking Tobacco: Every Day Cigarettes Passive Smoke Exposure: Current Smokeless Tobacco: Never Tobacco Cessation:Ready to Q uit: Not Asked; Counseling Given: Not Answered Alcohol Use Standard Drinks/Week Comments Never 0 (1 standard drink = 0.6 oz pur e alcohol) Depression Answer Date Recorded Patient Health Questionnaire-9 Score 15 05/18/2025 Patient Health Questionnaire-9 Score 15 05/18/2025 Last PHQ-9: Questionnaire Data Not on file 1 07/19/2024 Housing Stability Answer Date Recorded What is your housing situation today? I have chelle hoffman 10/27/[address] you li ve. Do you have problems with any of the following? None of the above 10/27/2024 Food Insecurity Answer Date Recorded Within the past 12 months, y ou worried that your food would run out before you got money to buy more: Never True 10/27/2024 Within the past 12 months,th e food you bought just didn't last and you didn't have enough money to get more: Never True Transportation Answer Date Recorded In the past 12 months, has l ack of transportation kept you from medical appts, meetings, work or from getting things needed for daily living? No 10/27/2024 Utilities Answer Date Recorded In the past 12 months, has t he electric, gas, oil or water company threatened to shut off services in your home? No 10/27/2024 Depression Answer Date Recorded Patient Health Questionnaire-2 Score 6 05/18/2025 Internet Access Answer Date Recorded Internet Access Q1 Yes 10/27/2024 Internet Access Q2 Not on file 10/27/2024 Sex and Gender Information Value Date Recorded Sex Assigned at Male 04/01/2022 10:15 AM EDT Legal Sex Male 10:15 AM EDT Gender Identity Male 04/01/2022 10:15 AM EDT Sexual Orientation Straight 04/01/2022 10 :15 AM EDT Last Filed Vital Signs Vital Sign Reading Time Taken Comments Blood Pressure 123/86 05/17/2025 12:53 PM EST Pulse 77 05/17/2025 12:53 PM EST Temperature 37.2 C (98.9 F) 05/17/2025 12:53 PM EST Respiratory Rate 17 05/17/2025 12:53 PM EST Oxygen Saturation 98% 05/17/2025 12:53 PM EST Inhaled Oxygen Concentration - - Weight 81.6 kg (180 lb) 05/17/2025 12:53 PM EST Height 170.2 cm (5' 7 ) 12/07/2024 10:22 AM EDT Body Mass Index 28.19 12/07/2024 10:22 AM EDT Plan of Treatment Upcoming Encounters Date Type Department Care Team (Late st Contact Info) Description 05/31/2025 10:15 AM EST Office Visit [facility] [address] [place] [phone] Lonnie Allred MD [address] [place] [address] Health Maintenance Due Date Last Done Comments CT Colonography 1975 Colonoscopy 1975 Colorectal Cancer Screening 1975 Dental Oral Exam 1975 Dental Prophylaxis 1975 Dental X-Ray: Bitewings 1975 FIT DNA/Cologuard 1975 FIT 1975 FOBT 1975 Sigmoidoscopy 1975 Family Planning (PISQ) 09/11/1990 DTaP/Tdap/Td Vaccines (10 - Td or Tdap) 10/06/2023 10/05/2013, 05/19/2007, 07/03/1994, Additional history exists COVID-19 Vaccine ( season) 2025 Influenza Vaccine (#1) 2025 05/18/2012 Dental X-Ray: Full Mouth 03/27/2025 03/26/2022, 07/0 11/2021 Zoster Vaccines (1 of 2) 09/11/2025 Disability Screening 10/27/2025 10/27/2024 SDOH Screening 10/27/2025 10/27/2024 Depression Monitoring 11/16/2025 05/18/2025, 025 Alcohol/Substance Use Screening 12/07/2025 12/07/2024 Tobacco Screening 05/17/2026 05/17/2025 Lipid Panel 04/05/2027 04/05/2022, 09/27/2020 RSV Patients and Patients Aged 60 years or older (1 - 1-dose 75+ series) 09/11/2050 IPV Vaccines Completed 09/05/1980, 05/02, 04/03/1976, Additional history exists Hepatitis A Vaccines Aged Out 02/14/2010 No long er eligible based on patient's age to complete this topic Hepatitis B Vaccines Completed 04/11/2010, 02/14/2010, 06/13/1995, Additional history exists HIV Screening Completed 04/05/2022 Hepatitis C Screening Completed 04/05/2022 Pneumococcal Vaccine: Pediatrics (0 to 5 Years) and At-Risk Patients (6 to 49) Years Completed 12/07/2024 HIB Vaccines Aged Out No longer eligi ble based on patient's age to complete this topic HPV Vaccines Aged Out No longer eligi ble based on patient's age to complete this topic Meningococcal B Vaccine Aged Out No l onger eligible based on patient's age to complete this topic Meningococcal Vaccine Aged Out No lazara roseann eligible based on patient's age to complete this topic RSV under 20 months Aged Out No longe r eligible based on patient's age to complete this topic Rotavirus Vaccines Aged Out No longer eligible based on patient's age to complete this topic Procedures Procedure Name Priority Date/Time Associated Diagnosis Comments XR CHEST 1 VIEW Routine 05/30/2025 9:27 PM EST XR CHEST 2 VIEWS Routine 05/30/2025 7:58 PM EST NT-PROBNP Routine 05/30/2025 7:52 PM EST HIGH SENSITIVITY TROPONIN I Routine 05/30/2025 7:52 PM EST MAGNESIUM Routine 05/30/2025 7:52 PM EST COMPREHENSIVE METABOLIC PANEL Routine 05/30/2025 7:52 PM EST CBC WITH AUTO DIFFERENTIAL Routine 05/30/2025 7:52 PM EST SARS COV2/INFLUENZA A/B AND RSV RNA QL NAAT Routine 05/30/2025 7:52 PM EST D DIMER HIGH SENSITIVITY Routine 04/06/2025 12:29 AM EST XR CHEST 1 VIEW Routine 04/05/2025 11:12 PM EST HIGH SENSITIVITY TROPONIN I Routine 04/05/2025 10:14 PM EST BASIC METABOLIC PANEL Routine 04/05/2025 10:14 PM EST CBC WITH AUTO DIFFERENTIAL Routine 04/05/2025 10:14 PM EST SARS COV2/INFLUENZA A/B AND RSV RNA QL NAAT Routine 04/05/2025 10:14 PM EST ZZZ HISTORICAL HEPATITIS C AB W/REFL TO HCV RNA, QN, PCR Routine 04/05/2022 10:24 AM EDT HIV 1/2 ANTIGEN/ANTIBODY, FOURTH GENERATION W/RFL Routine 04/05/2022 10:24 AM EDT LIPID PANEL, STANDARD Routine 04/05/2022 10:24 AM EDT from Last 3 Months or Most Recently Relevant to Health Maintenance Results * XR Chest 1 View (05/30/2025 9:27 PM EST) Only the most recent of2 resultswithin the time period is included. Anatomical Region Laterality Modality Chest Radiographic Fatimah ging 05/30/2025 9:27 PM EST Narrative 05/30/2025 9:29 PM EST [address] [address] XRay Report Signed Patient: Gerard Burnett MR#: M [id number] : 1975 Acct:[id number] Age/Sex: 49 / M ADM Date: 05/30/25 Loc: HO.ED Attending Dr: Ordering Physician: Phil Montana MD Date of Service: 05/30/25 Procedure(s): XR chest 1V Accession Number(s): [id number] cc: Lonnie Botello MD; Phil Montana MD Reason for Exam: s/p thoracostomy CLINICAL HISTORY: s p thoracostomy 1 view chest x-ray. Comparison: CR - XR CHEST 2V - 05/30/25 19:43 EST Findings: There is interval placement of a pigtail style chest tube on the left with the distal tip projecting over the left infrahilar region. There appears to be interval resolution of the previously demonstrated left-sided pneumothorax. No significant residual pneumothorax identified on this exam. No right pneumothorax. No pleural effusion visualized. No focal pulmonary consolidation. Minimal streaky bibasilar opacities are present. Normal heart size. Impression: 1. Interval placement of a left-sided chest tube as described above with interval resolution of the previously demonstrated left pneumothorax. No significant mediastinal shift present. 2. Minimal streaky bibasilar subsegmental atelectasis. No focal pulmonary consolidation. This document has been electronically signed by: Kyrie Leonard MD on 05/30/2025 21:27:39 Dictated By: Kyrie Leonard MD Signed By: <Electronically signed by Kyrie Leonard MD in OV> 05/30/252127 DD/ 26 TD/TT: 05/30/252126 Project Archivist: Procedure Note Donotuseinterpreter, Image - 05/30/[address] [address] XRay Report Signed Patient: Gerard Burnett FMR#: M [id number] : 1975Acct:[id number] Age/Sex: 49 / MADM Date: 05/30/25 Loc: HO.ED Attending Dr: Ordering Physician: Phil Montana MD Date of Service: 05/30/25 Procedure(s): XR chest 1V Accession Number(s): [id number] cc: Lonnie Botello MD; Phil Montana MD Reason for Exam: s/p thoracostomy CLINICAL HISTORY: s p thoracostomy 1 view chest x-ray. Comparison: CR - XR CHEST 2V - 05/30/25 19:43 EST Findings: There is interval placement of a pigtail style chest tube on the left with the distal tip projecting over the left infrahilar region. There appears to be interval resolution of the previously demonstrated left-sided pneumothorax. No significant residual pneumothorax identified on this exam. No right pneumothorax. No pleural effusion visualized. No focal pulmonary consolidation. Minimal streaky bibasilar opacities are present. Normal heart size. Impression: 1. Interval placement of a left-sided chest tube as described above with interval resolution of the previously demonstrated left pneumothorax. No significant mediastinal shift present. 2. Minimal streaky bibasilar subsegmental atelectasis. No focal pulmonary consolidation. This document has been electronically signed by: Kyrie Leonard MD on 05/30/2025 21:27:39 Dictated By: Kyrie Leonard MD Signed By: <Electronically signed by Kyrie Leonard MD in OV> 05/30/252127 DD/ 26 TD/TT: 05/30/252126 Project Archivist: [facility] External Provider IMG XR PROCEDURES Final Result * XR Chest 2 Views (05/30/2025 7:58 PM EST) Anatomical Region Laterality Modality Chest Radiographic Fatimha ging 05/30/2025 7:58 PM EST Narrative 05/30/2025 8:00 PM EST [address] [address] XRay Report Signed with Amada Patient: Gerard Burnett MR#: M [id number] : 1975 Acct:[id number] Age/Sex: 49 / M ADM Date: 05/30/25 Loc: HO.ED Attending Dr: Ordering Physician: Lea Godwin Date of Service: 05/30/25 Procedure(s): XR chest 2V Accession Number(s): [id number] cc: Lonnie Botello MD; Lea Godwin Reason for Exam: chest pain ADDENDUM This document has been electronically signed by: Mono Cooley MD on 05/30/2025 19:58:28 ADDENDUM: This report was discussed with Phil Montana MD on May 30, 2025 20:04:00 EST. This document has been electronically signed by: Lorie Dykes on 05/30/2025 20:04:14 Addendum Dictated By: Mono Cooley MD Addendum Signed By: <Electronically signed by Mono Cooely MD in OV> 05/30/252003 Addendum Cosigned By: DD/ TD/TT: 05/30/25 CLINICAL HISTORY: chest pain 2 view chest x-ray. Comparison: 04/05/2025 Findings: There is a large left pneumothorax (likely greater than 70% size), with very slight rightward deviation of cardiomediastinal contents, compatible with tension pneumothorax. No focal consolidation or pleural effusions. Cardiac and mediastinal contours are somewhat obscured on the left and otherwise grossly unremarkable.. Bones unremarkable. Impression: 1. Large tension pneumothorax on the left. This document has been electronically signed by: Mono Cooley MD on 05/30/2025 19:58:28 Dictated By: Mono Cooley MD Signed By: <Electronically signed by Mono Cooley MD in OV> 05/30/251958 DD/ 57 TD/TT: 05/30/251957 Project Archivist: Procedure Note Donotuseinterpreter, Image - 05/30/[address] [place] [address] XRay Report Signed with Amada Patient: Gerard Burnett FMR#: M [id number] : 1975Acct:[id number] Age/Sex: 49 / MADM Date: 05/30/25 Loc: HO.ED Attending Dr: Ordering Physician: Lea Godwin Date of Service: 05/30/25 Procedure(s): XR chest 2V Accession Number(s): [id number] cc: Lonnie Botello MD; Lea Godwin Reason for Exam: chest pain ADDENDUM This document has been electronically signed by: Mono Cooley MD on 05/30/2025 19:58:28 ADDENDUM: This report was discussed with Phil Montana MD on May 30, 2025 20:04:00 EST. This document has been electronically signed by: Lorie Dykes on 05/30/2025 20:04:14 Addendum Dictated By: Mono Cooley MD Addendum Signed By: <Electronically signed by Mono Cooley MD in OV> 05/30/252003 Addendum Cosigned By: DD/ TD/TT: 05/30/25 CLINICAL HISTORY: chest pain 2 view chest x-ray. Comparison: 04/05/2025 Findings: There is a large left pneumothorax (likely greater than 70% size), with very slight rightward deviation of cardiomediastinal contents, compatible with tension pneumothorax. No focal consolidation or pleural effusions. Cardiac and mediastinal contours are somewhat obscured on the left and otherwise grossly unremarkable.. Bones unremarkable. Impression: 1. Large tension pneumothorax on the left. This document has been electronically signed by: Mono Cooley MD on 05/30/2025 19:58:28 Dictated By: Mono Cooley MD Signed By: <Electronically signed by Mono Cooley MD in OV> 05/30/251958 DD/ 57 TD/TT: 05/30/251957 Project Archivist: [facility] External Provider IMG XR PROCEDURES Edited Result - Final * High Sensitivity Troponin I (05/30/2025 7:52 PM EST) Only the most recent of2 resultswithin the time period is included. TROPONIN I HIGH SENSITIVITY <2.7 <3.5 - 35.0 ng/L [facility] Comment:The [place] high sens itivity Troponin-I results should beused in conjunction with other diagnostic information suchas ECG, clinical observations and information, and patientsymptoms to aid in the diagnosis of UT. 05/30/2025 7:52 PM EST 05/30/2025 7:55 PM EST Generic External Data Provider LAB BLOOD ORDERAB LES Final Result [facility] [address] [place] [phone] * SARS-CoV-2 RNA, Influenza A/B, and RSV RNA, Ql NAAT (05/30/2025 7:52 PM EST) Only the most recent of2 resultswithin the time period is included. Pathologist [facility] Influenza A PCR NEGATIVE Negative [facility] Influenza B PCR NEGATIVE Negative [facility] Resp Syncy Virus RNA Qual PCR NEGATIVE Negative [facility] SARS COV2 PCR NEGATIVE Negative [facility] Comment:All test results mus t be correlated with clinical findings.Negative results do not preclude SARS-CoV2, influenza Avirus, influenza B virus and/or RSV infectionand should not be used as the sole basis for treatment orother patient management decisions. Negative results must becombined with clinical observations, patient history, andepidemiological information.This test has not been evaluated for monitoring treatment ofinfection.This test has been authorized by the FDA under an EmergencyUse Authorization (EUA) for use by authorized laboratories.Testing performed on the [employer] GeneXpert utilizingreal-time RT-PCR.All SARS CoV2 and positive influenza A/B results arereported to [facility]. 05/30/2025 7:52 PM EST 05/30/2025 7:55 PM EST Generic External Data Provider LAB MICROBIOLOGY - GENERAL ORDERABLES Final Result Performing Organization Address [facility] Co de Phone Number [facility] [address] [place] [phone] * NT-proBNP (05/30/2025 7:52 PM EST) Pathologist [facility] NT-proBNP <15.8 <300 pg/mL [facility] Comment:Reference Range:Age Group (years) NT-proBNP (pg/ml) InterpretationAll <300 Negative: HF unlikelyFor patients presenting to the ED with clinical suspicion ofnew onset or worsening HF, see below:18 to <50 >299.9 to <450.0 Grayzone: [id number] to 75 >299.9 to <900.0 other causes of>75 >299.9 to <1800.0 NT-proBNP [id number] to <50 >449.9 Positive: HF -43 >899.9>75 >1799.9Note: Elevated NT-proBNP levels should be interpreted inthe context of other clinical information. 05/30/2025 7:52 PM EST 05/30/2025 7:55 PM EST Generic External Data Provider LAB BLOOD ORDERAB LES Final Result Performing Organization Address City/[facility]/ZIP Co de Phone Number [facility] [address] [place] [phone] * (ABNORMAL) CBC auto differential (05/30/2025 7:52 PM EST) Only the most recent of2 resultswithin the time period is included. White Blood Count 18.5(H) 4.8 - 10.8 X10*3/uL [facility] Red Blood Count 5.79 4.60 - 5.80 X10*6/uL [facility] Hemoglobin 16.9 14.0 - 18.0 g/dl [facility] Hematocrit 49.3 42.0 - 52.0 % [facility] Mean Corpuscular Volume 85.1 80.0 - 98.0 fL [facility] Mean Corpuscular Hemoglobin 29.2 27.0 - 33.0 pg [facility] Mean Corpuscular HGB Conc 34.3 31.0 - 36.0 g/dl [facility] Red Cell Distribution Width 14.0 11.0 - 16.0 % [facility] Platelet Count 391 160 - 400 X10*3/uL [facility] Mean Platelet Volume 8.9(L) 9.4 - 12.4 fL [facility] Neutrophils Percent Auto 83.0(H) 45 - 73 % [facility] Imm Gran Pct Auto 0.9(H) 0.0 - 0.4 % [facility] Lymphocytes Percent Auto 10.1(L) 20 - 40 % [facility] Monocytes Percent Auto 5.0 2 - 11 % [facility] Eosinophils Percent Auto 0.5 0 - 4 % [facility] Basophils Percent Auto 0.5 0 - 2 % [facility] NRBC Pct Auto 0.0 0.0 - 0.2 /100WBC [facility] Neutrophils Absolute Auto 15.3(H) 2.0 - 8.3 x10*3/uL [facility] Imm Gran Abs Auto 0.16(H) 0.00 - 0.03 X10*3/uL [facility] Lymphocytes Absolute Auto 1.9 1.2 - 4.9 X10*3/uL [facility] Monocytes Absolute Auto 0.9 0.1 - 1.2 X10*3/uL [facility] Eosinophils Absolute Auto 0.1 0.0 - 0.4 X10*3/uL [facility] Basophils Absolute Auto 0.1 0.0 - 0.2 X10*3/uL [facility] NRBC Abs Auto 0.000 0.0 - 0.012 X10*3/uL [facility] 05/30/2025 7:52 PM EST 05/30/2025 7:55 PM EST us Generic External Data Provider LAB BLOOD ORDERAB LES Final Result Performing Organization Address City/[facility] Co de Phone Number [facility] [address] [place] [phone] * Magnesium (05/30/2025 7:52 PM EST) Magnesium 2.1 1.6 - 2.6 mg/dL [facility] 05/30/2025 7:5 2 PM EST 05/30/2025 7:55 PM EST [employer] External Data Provider LAB BLOOD ORDERAB LES Final Result Performing Organization Address [facility] Phone Number [facility] [address] [place] [address] [phone] * (ABNORMAL) Comprehensive Metabolic Panel (05/30/2025 7:52 PM EST) Sodium 142 135 - 145 mmol/L [facility] Potassium 4.8 3.3 - 5.1 mmol/L [facility] Comment:Slight Hemolysis.Int erpret result with caution. Chloride 103 96 - 108 mmol/L [facility] Carbon Dioxide 26 22 - 29 mmol/L [facility] Anion Gap 18 12 - 20 [facility] Urea Nitrogen (BUN) 22(H) 9 - 16 mg/dL [facility] Creatinine, Serum 0.99 0.5 - 1.4 mg/dL [facility] Creatinine Clr Calc Pharmacy 91.1 [facility] Comment:eGFR (calculated fro m the MDRD study equation) and eCrCl(calculated from the Cockcroft-Gault equation) are based ondifferent parameters and may not yield comparable results.If eCrCl result is absurd, please check patient'sheight/weight. Estimated Glomerular Filt Rate >60 [facility] Comment:Chronic Kidney Disea se: Estimated GFR < 60 mL/min/1.49g4Slrnty Kidney Disease: Estimated GFR < 15 mL/min/1.73m2 Glucose 97 60 - 115 mg/dL [facility] Calcium 10.6(H) 8.4 - 10.2 mg/dL [facility] Bilirubin, Total 0.4 0.0 - 1.0 mg/dL [facility] Aspartate Amino Transferase 39(H) 5 - 37 U/L [facility] Comment:Slight Hemolysis.Int erpret result with caution. Alanine Aminotransferase 55(H) 0 - 40 U/L [facility] Total Protein 9.0(H) 6.5 - 8.0 g/dL [facility] Albumin Level 5.3(H) 3.5 - 5.0 g/dL [facility] Alkaline Phosphatase 96 39 - 117 U/L [facility] 05/30/2025 7:52 PM EST 05/30/2025 7:55 PM EST Generic External Data Provider LAB BLOOD ORDERAB LES Final Result Performing Organization Address [facility] Number [facility] [address] [place] [phone] * D Dimer High Sensitivity (04/06/2025 12:29 AM EST) D Dimer High Sensitivity <150 NG/ML [facility] Comment:D-DIMER HS REFERENCE RANGENote: Our assay reports D-Dimer Units (D- DU).The cut-off value for venous thromboembolic (VTE) disease is230 ng/mL. This value has a very high negative predictivevalue when the patient has a low to moderate clinicalprobability of VTE.The upper limit of normal is 243 ng/mL. 04/06/2025 12:2 9 AM EST 04/06/2025 12:33 AM EST us Generic External Data Provider LAB BLOOD ORDERAB LES Final Result Performing Organization Address [facility] Phone Number [facility] [address] [place] [phone] * (ABNORMAL) Basic Metabolic Panel (04/05/2025 10:14 PM EST) Sodium 142 135 - 145 mmol/L [facility] Potassium 3.7 3.3 - 5.1 mmol/L [facility] Chloride 107 96 - 108 mmol/L [facility] Carbon Dioxide 27 22 - 29 mmol/L [facility] Anion Gap 12 12 - 20 [facility] Urea Nitrogen (BUN) 17(H) 9 - 16 mg/dL [facility] Creatinine, Serum 1.08 0.5 - 1.4 mg/dL [facility] Creatinine Clr Calc Pharmacy 77.3 [facility] Comment:eGFR (calculated fro m the MDRD study equation) and eCrCl(calculated from the Cockcroft-Gault equation) are based ondifferent parameters and may not yield comparable results.If eCrCl result is absurd, please check patient'sheight/weight. Estimated Glomerular Filt Rate >60 [facility] Comment:Chronic Kidney Disea se: Estimated GFR < 60 mL/min/1.95e5Bceqmk Kidney Disease: Estimated GFR < 15 mL/min/1.73m2 Glucose 129(H) 60 - 115 mg/dL [facility] Calcium 9.9 8.4 - 10.2 mg/dL [facility] 04/05/2025 10:1 4 PM EST 04/05/2025 10:24 PM EST us Generic External Data Provider LAB BLOOD ORDERAB LES Final Result [facility] [address] [place] [phone] * HEPATITIS C AB W/REFL TO HCV RNA, QN, PCR (04/05/2022 10:24 AM EDT) HEPATITIS C ANTIBODY NON-REACTI VE NON-REACT TOBIN [facility] INDEX 0.11 <1.00 [facility] Comment: HCV antibody was non-reactive. There is no laboratory evidence of HCV infection. In most cases, no further action is required. However, if recent HCV exposure is suspected, a test for HCV RNA (test code 09495) is suggested. For additional information please refer to http://DEQ.[employer]/faq/KYJ60k6 (This link is being provided for informational/ educational purposes only.) 04/05/2022 10:2 4 AM EDT Lonnie Poe MD HISTORICAL/NON ORDERA BLE LABS Final Result Performing Organization Address [facility] de Phone Number [facility] * HIV 1/2 ANTIGEN/ANTIBODY,FOURTH GENERATION W/RFL (04/05/2022 10:24 AM EDT) Pathologist [facility] HIV-1/2 ANTIGEN AND ANTIBODIES, 4TH GENERATION W/ REFLEX NON-REACT TOBIN NON-REACT TOBIN [facility] Comment: HIV-1 antigen and HIV-1/HIV-2 antibodies were not detected. There is no laboratory evidence of HIV infection. PLEASE NOTE: This information has been disclosed to you from records whose confidentiality may be protected by state law. If your state requires such protection, then the state law prohibits you from making any further disclosure of the information without the specific written consent of the person to whom it pertains, or as otherwise permitted by law. A general authorization for the release of medical or other information is NOT sufficient for this purpose. For additional information please refer to http://DEQ.[employer]/faq/GWF843 (This link is being provided for informational/ educational purposes only.) The performance of this assay has not been clinically validated in patients less than 2 years old. 04/05/2022 10:2 4 AM EDT us Lonnie Poe MD LAB BLOOD ORDERABLES Final Result Performing Organization Address [facility] de Phone Number [facility] * (ABNORMAL) LIPID PANEL, STANDARD (04/05/2022 10:24 AM EDT) Chol/HDLC Ratio 6.2(H) <5.0 (calc) [facility] Cholesterol, Total 210(H) <200 mg/dL [facility] HDL Cholesterol 34(L) > OR = 40 mg/dL [facility] LDL Cholesterol 140(H) mg/dL (calc) [facility] Comment: Reference range: <100 Desirable range <100 mg/dL for primary prevention; <70 mg/dL for patients with CHD or diabetic patients with > or = 2 CHD risk factors. LDL-C is now calculated using the Ion-Govea calculation, which is a validated novel method providing better accuracy than the Friedewald equation in the estimation of LDL-C. Ion SS et al. CLAYTON. 2013;310(19): 6647-2151 (http://education.[employer].TapClicks/faq/SHA216) Non-HDL Cholesterol 176(H) <130 mg/dL (calc) [facility] Comment: For patients with diabetes plus 1 major ASCVD risk factor, treating to a non-HDL-C goal of <100 mg/dL (LDL-C of <70 mg/dL) is considered a therapeutic option. Triglycerides 217(H) <150 mg/dL [facility] Comment: If a non-fasting specimen was collected, consider repeat triglyceride testing on a fasting specimen if clinically indicated. Dos Santos et al. J. of Clin. Lipidol. 2015;9:129-169. 04/05/2022 10:2 4 AM EDT Lonnie Poe MD LAB BLOOD ORDERABLES Final Result [facility] from Last 3 Months or Most Recently Relevant to Health Maintenance Insurance [facility] C3 BCBS PPO [facility] C3 DENTAL-[facility] MEDICAID STAND ADULT Care Teams Reading Instructor Relationship Specialty Start Date End Date Lonnie Allred MD [address] [place] [phone] PCP - General Internal Medicine 05/12/14
--- OUTSIDE RECORDS SUMMARY | 2025-05-30 21:39 | XMS_ITS | Encounter Summary ---
Author Organization [employer] Address [address] [facility] 7[address] [place] [address] Care Team Providers Care Sliding Joint Maker Name Role Phone Lonnie Allred MD Primary Care Provide r Encounter Details Date Type Department Care Team (Late st Contact Info) Description 04/11/2025 Telephone [facility] [address] [place] [address] Lonnie Allred MD [address] [place] [address] Social History Tobacco Use Types Packs/Day Years Used Date Smoking Tobacco: Every Day Cigarettes Passive Smoke Exposure: Current Smokeless Tobacco: Never Alcohol Use Standard Drinks/Week Comments Never 0 (1 standard drink = 0.6 oz pur e alcohol) Depression Answer Date Recorded Patient Health Questionnaire-9 Score 10 10/28/2024 Patient Health Questionnaire-9 Score 10 10/28/2024 Last PHQ-9: Questionnaire Data Not on file 0 10/28/2024 Housing Stability Answer Date Recorded What is [...] Date Recorded Patient Health Questionnaire-2 Score 6 10/28/2024 Internet Access Answer Date Recorded Internet Access Q1 Yes 10/27/2024 Internet Access Q2 Not on file 10/27/2024 Sex and Gender Information Value Date Recorded Sex Assigned at Male 04/01/2022 10:15 AM EDT Legal Sex Male 10:15 AM EDT Gender Identity Male 04/01/2022 10:15 AM EDT Sexual Orientation Straight 04/01/2022 10 :15 AM EDT documented as of this encounter Miscellaneous Notes * Telephone Encounter - Elen Boss RN - 04/11/2025 3:58 PM EST Pt seen at [facility] ED 04/06/25 Diagnosis: pneumonitis d/t crack cocaine use. Pt was Rxd Proair respiclick Inhaler powder upon discharge but it isn't covered by his insurance. He is requesting alternative rescue inhaler albuterol inhaler that is covered. * Telephone Encounter - Cathy Mayes - 04/11/2025 2:44 PM EST Tc from [facility] requesting a script of Albuterol Inhaler. Pt had recently a ER visit and they prescribe Proair respiclick Inhaler powder but is not cover thru insurance. Albuterol would be cover. PCP DR. Massey documented in this encounter Plan of Treatment Upcoming Encounters Date Type Department Care Team (Late st Contact Info) Description 05/31/2025 10:15 AM EST Office Visit [facility] [address] [place] [address] Lonnie Allred MD [address] [place] [address] documented as of this encounter Visit Diagnoses Not on filedocumented in this encounter Additional Health Concerns Assessment Noted Time PHQ-9 Depression Total Score: 10 025 9:35 AM EDT documented as of this encounter Care Teams Sliding Joint Maker Relationship Specialty Start Date End Date Lonnie Allred MD [address] [place] [address] PCP - General Internal Medicine 05/12/14 documented as of this encounter
--- OUTSIDE RECORDS SUMMARY | 2025-05-30 21:39 | XMS_ITS | Encounter Summary ---
Author Organization [employer] Address [address] [place] [address] 7 [place] [address] Care Team Providers Care Labor Contractor Name Role Phone Lonnie Allred MD Primary Care Provide r Reason for Visit * Reason Comments Med Refill Encounter Details Date Type Department Care Team ([facility] st Contact Info) Description 01/19/2025 Refill [facility] [address] [place] [address] Lonnie Allred MD [address] [place] [address] Muscle spasm Social History Tobacco Use Types Packs/Day Years [...] Description 05/31/2025 10:15 AM EST Office Visit [facility] [address] [place] [address] Lonnie Allred MD [address] [place] [address] documented as of this encounter Visit Diagnoses Diagnosis Muscle spasm Spasm of muscle documented in this encounter Additional Health Concerns Assessment Noted Time PHQ-9 Depression Total Score: 10 025 9:35 AM EDT documented as of this encounter Care Teams Labor Contractor Relationship Specialty Start Date End Date Lonnie Allred MD [address] [place] [address] PCP - General Internal Medicine 05/12/14 documented as of this encounter
--- OUTSIDE RECORDS SUMMARY | 2025-05-30 21:39 | XMS_ITS | Encounter Summary ---
Author Organization [employer] Address [address] [place] [address] 7t [place] [address] Care Team Providers Care Special Officer Name Role Phone Lonnie Allred MD Primary Care Provide r Encounter Details Date Type Department Care Team ([facility] Contact Info) Description 05/20/2022 Abstract [facility] [address] [place] [address] Silvestre Moreno, DMD [address] [place] [address] Social History Tobacco Use Types Packs/Day Years [...] suspected to have Coronavirus/COVID-19? No / Unsure 05/21/2022 9:24 AM EST documented as of this encounter Plan of Treatment Upcoming Encounters Date Type Department Care Team ([facility] Contact Info) Description 05/31/2025 10:15 AM EST Office Visit [facility] [address] [place] [address] Lonnie Allred MD [address] [place] [address] documented as of this encounter Visit Diagnoses Not on filedocumented in this encounter Care Teams Special Officer Relationship Specialty Start Date End Date Lonnie Allred MD [address] [place] [address] PCP - General Internal Medicine 05/12/14 documented as of this encounter
--- OUTSIDE RECORDS SUMMARY | 2025-05-30 21:39 | XMS_ITS | Encounter Summary ---
Author Organization [employer] Address [address] [place] [address] 7 [place] [address] Care Team Providers Care Devops Consultant Name Role Phone Lonnie Allred MD Primary Care Provide r Reason for Visit * Reason Onset Date Comments chart prep 05/30/2025 Encounter Details Date Type Department Care Team ([facility] st Contact Info) Description 05/30/2025 Telephone [facility] [address] [place] [address] Lonnie Allred MD [address] [place] [address] chart prep Social History Tobacco Use Types Packs/Day Years [...] encounter Miscellaneous Notes * Telephone Encounter - Natanael Cardozo MA - 05/30/2025 1:24 PM EST Chart Prep Labs: done Images: done Referrals: appointment pending Vaccines due: Covid, Flu, Tdap, Hep A, and Zoster Screenings: colonoscopy, eye exam, and Anal pap Overdue care gaps: none documented in this encounter Plan of Treatment Upcoming Encounters Date Type Department Care Team (Late st Contact Info) Description 05/31/2025 10:15 AM EST Office Visit [facility] [address] [place] [address] Lonnie Allred MD [address] [place] [address] documented as of this encounter Visit Diagnoses Not on filedocumented in this encounter Additional Health Concerns Assessment Noted Time PHQ-9 Depression Total Score: 15 025 2:49 PM EST documented as of this encounter Care Teams Devops Consultant Relationship Specialty Start Date End Date Lonnie Allred MD [address] [place] [phone] PCP - General Internal Medicine 05/12/14 documented as of this encounter
--- OUTSIDE RECORDS SUMMARY | 2025-05-30 21:39 | XMS_ITS | Encounter Summary ---
Author Organization [employer] Address [address] [place] [address] [address], [place] [address] Care Team Providers Care Paraplanner Name Role Phone Lonnie Allred MD Primary Care Provide r Encounter Details Date Type Department Care Team (Late st Contact Info) Description 07/19/2022 [facility] Management [address] [place] [address] Lonnie Allred MD [address] [place], [place] [phone] Social History Tobacco Use Types Packs/Day Years [...] suspected to have Coronavirus/COVID-19? No / Unsure 07/11/2022 7:53 AM EST documented as of this encounter Plan of Treatment Upcoming Encounters Date Type Department Care Team (Late st Contact Info) Description 05/31/2025 10:15 AM EST Office Visit [facility] [address] [place] [address] Lonnie Allred MD [address] [place] [address] documented as of this encounter Visit Diagnoses Not on filedocumented in this encounter Care Teams Paraplanner Relationship Specialty Start Date End Date Lonnie Allred MD [address] [place] [address] PCP - General Internal Medicine 05/12/14 documented as of this encounter
--- OUTSIDE RECORDS SUMMARY | 2025-05-30 21:39 | XMS_ITS | Encounter Summary ---
Author Organization [employer] Address [address] [place] [address] 7 [place] [address] Care Team Providers Care Technical Illustrator Name Role Phone Lonnie Allred MD Primary Care Provide r Reason for Visit * Reason Comments Med Refill Encounter Details Date Type Department Care Team ([facility] st Contact Info) Description 05/11/2025 Refill [facility] [address] [place] [address] Lonnie Allred MD [address] [place] [address] Social History Tobacco Use Types Packs/Day Years [...] Description 05/31/2025 10:15 AM EST Office Visit [facility] [address] [place] [address] Lonnie Allred MD [address] [place] [address] documented as of this encounter Visit Diagnoses Not on filedocumented in this encounter Additional Health Concerns Assessment Noted Time PHQ-9 Depression Total Score: 10 025 9:35 AM EDT documented as of this encounter Care Teams Technical Illustrator Relationship Specialty Start Date End Date Lonnie Allred MD [address] [place] [address] PCP - General Internal Medicine 05/12/14 documented as of this encounter
--- OUTSIDE RECORDS SUMMARY | 2025-05-30 21:39 | XMS_ITS | Encounter Summary ---
Author Organization [employer] Address [address] [place] [address] 7 [place] [address] Care Team Providers Care Demolition Worker Name Role Phone Lonnie Allred MD Primary Care Provide r Reason for Visit * Reason Onset Date Comments No Show 11/06/2022 Encounter Details Date Type Department Care Team ([facility] st Contact Info) Description 11/06/2022 Telephone [facility] [address] [place] [address] Lonnie Allred MD [address] [place] [address] No Show Social History Tobacco Use Types Packs/Day Years [...] suspected to have Coronavirus/COVID-19? No / Unsure 11/07/2022 8:40 AM EDT documented as of this encounter Miscellaneous Notes * Telephone Encounter - Lashonda Augustin RN - 11/11/2022 2:23 PM EDT Per PCP, Please schedule a 30 minute appointment with me. The reason why I am concerned about prescribing him with the Seroquel is because he was on Methadone. I do not know if he is still on it ?. Also I would need to do an EKG to make sure his Qtc is not prolongued before prescribing him. Pleaseexplain to patient that this is for his own safety and I would be happy to see him, examine him anddo an EKG and depending on that evaluation we can decide the treatment. Also please find out if he is receiving counseling services and if not please refer to our [facility] clinician for an evaluation Pt to come in tomorrow 11/[address] Massey to go over medication. Pt has psych provider who is seeing soon, in the middle of transition of care. Pt verbalized understanding and denied having any further questions or concerns at this time. * Telephone Encounter - Lashonda Augustin RN - 11/08/2022 10:04 AM EDT Pt came into [facility] requesting refill on Seroquel, pt stated his PCP was going to rx this medication recently and his PCP told him he would refill it. Advised pt based on last telephone calls that PCP would not be refilling medication based on current medication pt is taking, a note about it in April and pt having a psychologist appt upcoming, as well as pt walked out of visit yesterday withP. Pt was made aware of this on the phone by Elen HAGAN. Pt stated his next appt with psych wouldbe December 10 and he has not had medication for a month and won't have any until after December 10. Previous telephone calls also stated psych office will not rx medication as pt has not been seen christina year and they will not refil until next appt. Let pt know RN would let PCP know about psych appt date but cannot promise PCP is going to rx medication. * Telephone Encounter - Lakshmi Owusu LPN - 11/06/2022 12:12 PM EDT Previous messages state meds are prescribed by Psych and not by Pcp * Telephone Encounter - Xiomara Caleb - 11/06/2022 11:59 AM EDT Tc from pt requesting medication refill for cloNIDine (Catapres) 0.1 MG tablet and Seroquel 50mg tablet documented in this encounter Plan of Treatment Upcoming Encounters Date Type Department Care Team (Late st Contact Info) Description 05/31/2025 10:15 AM EST Office Visit [facility] [address] [place], [place] [phone] Lonnie Allred MD [address] [place] [address] documented as of this encounter Visit Diagnoses Not on filedocumented in this encounter Care Teams Demolition Worker Relationship Specialty Start Date End Date Lonnie Allred MD [address] [place], [place] [phone] PCP - General Internal Medicine 05/12/14 documented as of this encounter
--- OUTSIDE RECORDS SUMMARY | 2025-05-30 21:39 | XMS_ITS | Encounter Summary ---
Author Organization [employer] Address [address] [place] [address] 7[address] [place] [address] Care Team Providers Care Loom Mechanic Name Role Phone Lonnie Allred MD Primary Care Provide r Encounter Details Date Type Department Care Team (Late Contact Info) Description 05/28/2022 Orders Only [facility] MEDICINE [address] [place] [phone] Cindy Salter, RN Social History Tobacco Use Types Packs/Day Years [...] Description 05/31/2025 10:15 AM EST Office Visit [facility] MEDICINE [address] [place] [phone] Lonnie Allred MD [address] [place] [address] [phone] documented as of this encounter Procedures Procedure Name Priority Date/Time Associated Diagnosis Comments CBC WITH AUTO DIFFERENTIAL Routine 01/07/2023 8:43 AM EDT BASIC METABOLIC PANEL Routine 01/07/2023 8:43 AM EDT documented in this encounter Results * Basic Metabolic Panel (01/07/2023 8:43 AM EDT) Sodium 140 135 - 145 mmol/L [facility] Potassium 4.0 3.3 - 5.1 mmol/L [facility] Chloride 104 96 - 108 mmol/L [facility] Carbon Dioxide 28 22 - 29 mmol/L [facility] Anion Gap 12 12 - 20 [facility] Urea Nitrogen (BUN) 16 9 - 16 mg/dL [facility] Creatinine, Serum 0.78 0.5 - 1.4 mg/dL [facility] Estimated Glomerular Filt Rate >60 [facility] Comment:NOTE: For -Am erican individuals, multiply the result by 1.210.Chronic Kidney Disease: Estimated GFR < 60 mL/min/1.15t8Fmfuzs Kidney Disease: Estimated GFR < 15 mL/min/1.73m2 Glucose 100 60 - 115 mg/dL [facility] Calcium 9.6 8.4 - 10.2 mg/dL [facility] 01/07/2023 8:43 AM EDT 01/07/2023 11:24 AM EDT us Keyana Matson MD LAB BLOOD ORDERABLES Final Resul t [facility] [address] [place] [address] [phone] * (ABNORMAL) CBC auto differential (01/07/2023 8:43 AM EDT) White Blood Count 5.6 4.8 - 10.8 X10*3/uL [facility] Red Blood Count 4.84 4.60 - 5.80 X10*6/uL [facility] Hemoglobin 14.2 14.0 - 18.0 g/dl [facility] Hematocrit 42.5 42.0 - 52.0 % [facility] Mean Corpuscular Volume 87.8 80.0 - 98.0 fL [facility] Mean Corpuscular Hemoglobin 29.3 27.0 - 33.0 pg [facility] Mean Corpuscular HGB Conc 33.4 31.0 - 36.0 g/dl [facility] Red Cell Distribution Width 13.9 11.0 - 16.0 % [facility] Platelet Count 265 160 - 400 X10*3/uL [facility] Mean Platelet Volume 10.2 9.4 - 12.4 fL [facility] Neutrophils Percent Auto 41.5(L) 45 - 73 % [facility] Imm Gran Pct Auto 0.4 0.0 - 0.4 % [facility] Lymphocytes Percent Auto 36.9 20 - 40 % [facility] Monocytes Percent Auto 18.7(H) 2 - 11 % [facility] Eosinophils Percent Auto 1.6 0 - 4 % [facility] Basophils Percent Auto 0.9 0 - 2 % [facility] NRBC Pct Auto 0.0 0.0 - 0.2 /100WBC [facility] Neutrophils Absolute Auto 2.3 2.0 - 8.3 x10*3/uL [facility] Imm Gran Abs Auto 0.02 0.00 - 0.03 X10*3/uL [facility] Lymphocytes Absolute Auto 2.1 1.2 - 4.9 X10*3/uL [facility] Monocytes Absolute Auto 1.1 0.1 - 1.2 X10*3/uL [facility] Eosinophils Absolute Auto 0.1 0.0 - 0.4 X10*3/uL [facility] Basophils Absolute Auto 0.1 0.0 - 0.2 X10*3/uL [facility] NRBC Abs Auto 0.000 0.0 - 0.012 X10*3/uL [facility] 01/07/2023 8:43 AM EDT 01/07/2023 11:24 AM EDT us Keyana Matson MD LAB BLOOD ORDERABLES Final Resul t [facility] [address] [place] [phone] [phone] documented in this encounter Visit Diagnoses Not on filedocumented in this encounter Care Teams Loom Mechanic Relationship Specialty Start Date End Date Lonnie Allred MD [address] [place] [phone] PCP - General Internal Medicine 05/12/14 documented as of this encounter
--- OUTSIDE RECORDS SUMMARY | 2025-05-30 21:39 | XMS_ITS | Encounter Summary ---
Author Organization [employer] Address [address] [place] [address] 7[address] [place] [address] Care Team Providers Care Crusher Operator Name Role Phone Lonnie Allred MD Primary Care Provide r Reason for Visit * Reason Onset Date Comments Med Refill Results 06/21/2022 Pt walked [facility] uesting a new lab order due to high numbers for the liver results per Dr. Parekh . Patient can be reached at Encounter Details Date Type Department Care Team (Late st Contact Info) Description 06/21/2022 Refill [facility] MEDICINE [address] [place] [address] Darren Simmons MD [address] [place] [address] Social History Tobacco Use Types Packs/Day Years [...] Miscellaneous Notes * Telephone Encounter - Elen Ortiz RN - 06/28/2022 9:48 AM EST Received fax as below. AST 67, ALT 131. Will send to scan. Please advise if you would like further labs or F/U as requested below. * Telephone Encounter - Elen Ortiz RN - 06/28/2022 9:25 AM EST T/C placed to [facility] requesting las OV note and labs be faxed to me for review. Pt walked in requesting a new lab order due to high numbers for the liver results per Dr. Parekh . Patient can be reached at Pt walked in requesting a new lab order due to high numbers for the liver results per Dr. Parekh . Patient can be reached at documented in this encounter Plan of Treatment Upcoming Encounters Date Type Department Care Team (Late st Contact Info) Description 05/31/2025 10:15 AM EST Office Visit [facility] MEDICINE [address] [place], [place] [phone] Lonnie Allred MD [address] [place] [address] documented as of this encounter Visit Diagnoses Not on filedocumented in this encounter Care Teams Crusher Operator Relationship Specialty Start Date End Date Lonnie Allred MD [address] [place] [address] PCP - General Internal Medicine 05/12/14 documented as of this encounter
--- OUTSIDE RECORDS SUMMARY | 2025-05-30 21:39 | XMS_ITS | Encounter Summary ---
Author Organization [employer] Address [address] [place] [address] 7t [place] [address] Care Team Providers Care Knot Tying Operator Name Role Phone Lonnie Allred MD Primary Care Provide r Reason for Visit * Reason Onset Date Comments Appointment 08/01/2022 Encounter Details Date Type Department Care Team (Late st Contact Info) Description 08/01/2022 Telephone [facility] [address] [place] [address] Mukul Rod DDS [address] [place] [address] Appointment Social History Tobacco Use Types Packs/Day Years [...] * Telephone Encounter - Ritu Selby - 08/19/2022 11:45 AM EDT The case is actually here. Dr. Bolano had responded to it prior. There is no room on our end. Can you reach out to patient for scheduling? * Telephone Encounter - Sana Haynes - 08/14/2022 11:39 AM EDT Patient called in again today to confirm if case is back from lab. It was still pending on 08/01 per your response.COTY * Telephone Encounter - Ritu Selby - 08/06/2022 11:47 AM EST Patient called in again today to confirm if case is back from lab. It was still pending on 08/01 per your response * Telephone Encounter - Ritu Selby - 08/01/2022 11:40 AM EST Patient confirming if case is back from lab for appt. documented in this encounter Plan of Treatment Upcoming Encounters Date Type Department Care Team (Late st Contact Info) Description 05/31/2025 10:15 AM EST Office Visit [facility] [address] [place] [address] Lonnie Allred MD [address] [place] [address] documented as of this encounter Visit Diagnoses Not on filedocumented in this encounter Care Teams Knot Tying Operator Relationship Specialty Start Date End Date Lonnie Allred MD [address] [place] [address] PCP - General Internal Medicine 05/12/14 documented as of this encounter
--- OUTSIDE RECORDS SUMMARY | 2025-05-30 21:39 | XMS_ITS | Encounter Summary ---
Author Organization [employer] Address [address] [place] [address] [address] [place] [address] Care Team Providers Care Quarry Equipment Operator Name Role Phone Lonnie Allred MD Primary Care Provide r Encounter Details Date Type Department Care Team (Late st Contact Info) Description 05/09/2022 Abstract [facility] [address] [place] [address] Amairnai Flores Social History Tobacco Use Types Packs/Day Years Used Date Smoking Tobacco: Some Days Cigarettes Tobacco Cessation:Ready to Q uit: Yes; Counseling Given: Yes Alcohol Use Standard Drinks/Week Comments Not Currently 0 (1 standard drink = 0.6 oz [...] suspected to have Coronavirus/COVID-19? No / Unsure 05/10/2022 9:27 AM EST documented as of this encounter Plan of Treatment Upcoming Encounters Date Type Department Care Team (Late st Contact Info) Description 05/31/2025 10:15 AM EST Office Visit [facility] MEDICINE [address] [place] [address] Lonnie Allred MD [address] [place], [place] [phone] documented as of this encounter Visit Diagnoses Not on filedocumented in this encounter Care Teams Quarry Equipment Operator Relationship Specialty Start Date End Date Lonnie Allred MD [address] [place] [phone] PCP - General Internal Medicine 05/12/14 documented as of this encounter
--- OUTSIDE RECORDS SUMMARY | 2025-05-30 21:39 | XMS_ITS | Encounter Summary ---
Author Organization [employer] Address [address] [facility] [address] [place] [address] Care Team Providers Care Recruitment Director Name Role Phone Lonnie Allred MD Primary Care Provide r Encounter Details Date Type Department Care Team (Late st Contact Info) Description 05/30/2025 Orders Only GENERIC EXTERNAL DATA DEPARTMENT Provider, Generic External Data Social History Tobacco Use Types Packs/Day Years [...] 05/31/2025 10:15 AM EST Office Visit [facility] MEDICINE [address] [place], [place] [phone] Lonnie Allred MD [address] [place] [address] documented as of this encounter Procedures Procedure Name Priority Date/Time Associated Diagnosis Comments XR CHEST 1 VIEW Routine 05/30/2025 9:27 PM EST XR CHEST 2 VIEWS Routine 05/30/2025 7:58 PM EST HIGH SENSITIVITY TROPONIN I Routine 05/30/2025 7:52 PM EST SARS COV2/INFLUENZA A/B AND RSV RNA QL NAAT Routine 05/30/2025 7:52 PM EST NT-PROBNP Routine 05/30/2025 7:52 PM EST CBC WITH AUTO DIFFERENTIAL Routine 05/30/2025 7:52 PM EST MAGNESIUM Routine 05/30/2025 7:52 PM EST COMPREHENSIVE METABOLIC PANEL Routine 05/30/2025 7:52 PM EST documented in this encounter Results * XR Chest 1 View (05/30/2025 9:27 PM EST) Anatomical Region Laterality Modality Chest Radiographic Fatimah ging 05/30/2025 9:27 PM EST Narrative 05/30/2025 9:29 PM EST [address] [address] XRay Report Signed Patient: Gerard Burnett MR#: [id number] : 1975 Acct:[id number] Age/Sex: 49 / M ADM Date: 05/30/25 Loc: HO.ED Attending Dr: Ordering Physician: Phil Montana MD Date of Service: 05/30/25 Procedure(s): XR chest 1V Accession Number(s): [id number] cc: Lonnie Botello MD; Phil Montana MD [...] in OV> 05/30/252127 DD/ 26 TD/TT: 05/30/252126 Airport Engineer: Procedure Note Donotuseinterpreter, Image - 05/30/[address] [address] XRay Report Signed Patient: Gerard Burnett FMR#: M [id number] : 1975Acct:[id number] Age/Sex: 49 / MADM Date: 05/30/25 Loc: HO.ED Attending Dr: Ordering Physician: Phil Montana MD Date of Service: 05/30/25 Procedure(s): XR chest 1V Accession Number(s): [id number] cc: Lonnie Botello MD; Phil Montana MD [...] in OV> 05/30/252127 DD/ 26 TD/TT: 05/30/252126 Airport Engineer: us [facility] External Provider IMG XR PROCEDURES Final Result * XR Chest 2 Views (05/30/2025 7:58 PM EST) Anatomical Region Laterality Modality Chest Radiographic Fatimah ging 05/30/2025 7:58 PM EST Narrative 05/30/2025 8:00 PM EST [address] [address] XRay Report Signed with Amada Patient: Gerard Burnett MR#: [id number] : 1975 Acct:[id number] Age/Sex: 49 / M ADM Date: 05/30/25 Loc: HO.ED Attending Dr: Ordering Physician: Lea Godwin Date of Service: 05/30/25 Procedure(s): XR chest 2V Accession Number(s): [id number] cc: Lonnie Botello MD; Lea Godwin Reason [...] in OV> 05/30/251958 DD/ 57 TD/TT: 05/30/251957 Airport Engineer: Procedure Note Donotuseinterpreter, Image - 05/30/[address] [address] XRay Report Signed with Addvanessa Patient: Gerard Burnett FMR#: M [id number] : 1975Acct:[id number] Age/Sex: 49 / MADM Date: 05/30/25 Loc: HO.ED Attending Dr: Ordering Physician: Lea Godwin Date of Service: 05/30/25 Procedure(s): XR chest 2V Accession Number(s): [id number] cc: Lonnie Botello MD; Lea Godwin Reason [...] in OV> 05/30/251958 DD/ 57 TD/TT: 05/30/251957 Airport Engineer: [facility] External Provider IMG XR PROCEDURES Edited Result - Final * SARS-CoV-2 RNA, Influenza A/B, and RSV RNA, Ql NAAT (05/30/2025 7:52 PM EST) Influenza A PCR NEGATIVE Negative [facility] Influenza B PCR NEGATIVE Negative [facility] Resp Syncy Virus RNA Qual PCR NEGATIVE Negative [facility] SARS COV2 PCR NEGATIVE Negative [facility] Comment:All test results mus t [...] use by authorized laboratories.Testing performed on the [employer] GeneXpert utilizingreal-time RT-PCR.All SARS CoV2 and positive influenza A/B results arereported to [facility]. 05/30/2025 7:52 PM EST 05/30/2025 7:55 PM EST us Generic External Data Provider LAB MICROBIOLOGY - GENERAL ORDERABLES Final Result [facility] [address] [place] [phone] * NT-proBNP (05/30/2025 7:52 PM EST) NT-proBNP <15.8 <300 pg/mL [facility] Comment:Reference Range:Age Group (years) NT-proBNP (pg/ml) InterpretationAll <300 Negative: HF unlikelyFor patients presenting to the ED with clinical suspicion ofnew onset or worsening HF, see below:18 to <50 >299.9 to <450.0 Grayzone: [id number] to 75 >299.9 to <900.0 other causes of>75 >299.9 to <1800.0 NT-proBNP to <50 >449.9 Positive: HF [id number] >899.9>75 >1799.9Note: Elevated NT-proBNP levels should be interpreted inthe context of other clinical information. 05/30/2025 7:52 PM EST 05/30/2025 7:55 PM EST Generic External Data Provider LAB BLOOD ORDERAB LES Final Result Performing Organization Address [facility] de Phone Number [facility] [address] [place] [phone] * High Sensitivity Troponin I (05/30/2025 7:52 PM EST) [facility] TROPONIN I HIGH SENSITIVITY <2.7 <3.5 - 35.0 ng/L [facility] Comment:The [employer] high sens itivity Troponin-I results should beused in conjunction with other diagnostic information suchas ECG, clinical observations and information, and patientsymptoms to aid in the diagnosis of OR. 05/30/2025 7:52 PM EST 05/30/2025 7:55 PM EST Generic External Data Provider LAB BLOOD ORDERAB LES Final Result Performing Organization Address [facility] Phone Number [facility] [address] [place] [phone] * Magnesium (05/30/2025 7:52 PM EST) [facility] Magnesium 2.1 1.6 - 2.6 mg/dL [facility] 05/30/2025 7:52 PM EST 05/30/2025 7:55 PM EST Generic External Data Provider LAB BLOOD ORDERAB LES Final Result Performing Organization Address [facility] Phone Number [facility] [address] [place] [phone] * (ABNORMAL) Comprehensive Metabolic Panel (05/30/2025 7:52 PM EST) [facility] Sodium 142 135 - 145 mmol/L [facility] Potassium 4.8 3.3 - 5.1 mmol/L [facility] Comment:Slight Hemolysis.Int erpret result with caution. Chloride 103 96 - 108 mmol/L [facility] Carbon Dioxide 26 22 - 29 mmol/L [facility] Anion Gap 18 12 - 20 [facility] Urea Nitrogen (BUN) 22(H) 9 - 16 mg/dL [facility] Creatinine, Serum 0.99 0.5 - 1.4 mg/dL [facility] Creatinine Clr Calc Pharmacy 91.1 [facility] Comment:eGFR (calculated fro m the MDRD study equation) and eCrCl(calculated from the Cockcroft-Gault equation) are based ondifferent parameters and may not yield comparable results.If eCrCl result is absurd, please check patient'sheight/weight. Estimated Glomerular Filt Rate >60 [facility] Comment:Chronic Kidney Disea se: Estimated GFR < 60 mL/min/1.59w7Kpbnny Kidney Disease: Estimated GFR < 15 mL/min/1.73m2 Glucose 97 60 - 115 mg/dL [facility] Calcium 10.6(H) 8.4 - 10.2 mg/dL [facility] Bilirubin, Total 0.4 0.0 - 1.0 mg/dL [facility] Aspartate Amino Transferase 39(H) 5 - 37 U/L [facility] Comment:Slight Hemolysis.Int erpret result with caution. Alanine Aminotransferase 55(H) 0 - 40 U/L [facility] Total Protein 9.0(H) 6.5 - 8.0 g/dL [facility] Albumin Level 5.3(H) 3.5 - 5.0 g/dL [facility] Alkaline Phosphatase 96 39 - 117 U/L [facility] 05/30/2025 7:52 PM EST 05/30/2025 7:55 PM EST us Generic External Data Provider LAB BLOOD ORDERAB LES Final Result [facility] [address] [place] [address] [phone] * (ABNORMAL) CBC auto differential (05/30/2025 7:52 PM EST) White Blood Count 18.5(H) 4.8 - 10.8 X10*3/uL [facility] Red Blood Count 5.79 4.60 - 5.80 X10*6/uL [facility] Hemoglobin 16.9 14.0 - 18.0 g/dl [facility] Hematocrit 49.3 42.0 - 52.0 % [facility] Mean Corpuscular Volume 85.1 80.0 - 98.0 fL [facility] Mean Corpuscular Hemoglobin 29.2 27.0 - 33.0 pg [facility] Mean Corpuscular HGB Conc 34.3 31.0 - 36.0 g/dl [facility] Red Cell Distribution Width 14.0 11.0 - 16.0 % [facility] Platelet Count 391 160 - 400 X10*3/uL [facility] Mean Platelet Volume 8.9(L) 9.4 - 12.4 fL [facility] Neutrophils Percent Auto 83.0(H) 45 - 73 % [facility] Imm Gran Pct Auto 0.9(H) 0.0 - 0.4 % [facility] Lymphocytes Percent Auto 10.1(L) 20 - 40 % [facility] Monocytes Percent Auto 5.0 2 - 11 % [facility] Eosinophils Percent Auto 0.5 0 - 4 % [facility] Basophils Percent Auto 0.5 0 - 2 % [facility] NRBC Pct Auto 0.0 0.0 - 0.2 /100WBC [facility] Neutrophils Absolute Auto 15.3(H) 2.0 - 8.3 x10*3/uL [facility] Imm Gran Abs Auto 0.16(H) 0.00 - 0.03 X10*3/uL [facility] Lymphocytes Absolute Auto 1.9 1.2 - 4.9 X10*3/uL [facility] Monocytes Absolute Auto 0.9 0.1 - 1.2 X10*3/uL [facility] Eosinophils Absolute Auto 0.1 0.0 - 0.4 X10*3/uL [facility] Basophils Absolute Auto 0.1 0.0 - 0.2 X10*3/uL [facility] NRBC Abs Auto 0.000 0.0 - 0.012 X10*3/uL [facility] 05/30/2025 7:52 PM EST 05/30/2025 7:55 PM EST us Generic External Data Provider LAB BLOOD ORDERAB LES Final Result [facility] [address] [place] [address] [phone] documented in this encounter Visit Diagnoses Not on filedocumented in this encounter Additional Health Concerns Assessment Noted Time PHQ-9 Depression Total Score: 15 12/ 025 2:49 PM EST documented as of this encounter Care Teams Recruitment Director Relationship Specialty Start Date End Date Lonnie Allred MD [address] [place] [phone] PCP - General Internal Medicine 05/12/14 documented as of this encounter
--- NOTE | 2025-05-30 21:43 | PC.NURSE ---
pt to CT at this time
--- NOTE | 2025-05-30 22:09 | PC.NURSE ---
pt returned from CT at this time, vss. pt appears comfortable, respirations even and unlabored.
--- NOTE | 2025-05-30 23:42 | PC.NURSE ---
Nurse to nurse given to BENTLEY Agarwal at [facility]
== END 2025-05-31 00:57 | disposition short-term general hospital (02) ==
PROVIDERS: Physician Assistant Medical; Emergency Provider Emergency Medicine; PCP Internal Medicine
DX: J93.9 Pneumothorax, unspecified (principal); R07.89 Other chest pain; R06.02 Shortness of breath; Z79.899 Other long term (current) drug therapy; Z03.818 Encounter for observation for suspected exposure to other biological agents ruled out
CPT/HCPCS: 32551; 71045; 71046; 71250; 80053; 83735; 83880; 84484; 85025; 87637; 93005; 96365; 96367; 96375; 96376; 99284; J0131; J0690; J1171; J1885; J2004; J2250; J3010; J3360

== ENCOUNTER → 2025-05-30 18:48 | Outpatient (BNV) | payer MEDICAID, SELFPAY | PROVIDERS: Emergency Provider Emergency Medicine; PCP Internal Medicine; Visit Provider Internal Medicine | DX: R07.9 Chest pain, unspecified (principal) | CPT/HCPCS: 93010 ==

== ENCOUNTER → 2025-05-30 19:27 | Outpatient (BNV) | payer BC, SELFPAY | PROVIDERS: PCP Internal Medicine; Visit Provider Radiology Diagnostic Radiology | DX: R07.9 Chest pain, unspecified (principal) | CPT/HCPCS: 71045; 71046 ==